=== PATIENT | female | born 1935 | race Caucasian/White ===

== ENCOUNTER 2017-02-17 00:59 | Emergency (ER) | payer MEDICARE ==
[2017-02-17 01:47] LABS: #Eosinphils 0.1 thou/uL (0.0-0.7); #Monocytes 0.7 thou/uL (0.11-0.59); %Basophils 0.5 % (0.0-1.0); %Eosinophils 1.9 % (0.0-10.0); %Lymphocytes 14.7 % (21.0-51.0); %Monocytes 9.9 % (0.0-10.0); Hematocrit 40.1 % (36.0-47.0); Red Blood Cell (RBC) Count 4.14 mill/uL (4.20-5.40); White Blood Cell (WBC) Count 6.9 thou/uL (4.8-10.8)
[2017-02-17 02:09] LABS: ALT (SGPT) 26 U/L (8-55); AST (SGOT) 24 U/L (5-34); Alkaline Phosphatase 73 U/L (40-150); Anion Gap 12 mmol/L (10-20); BUN (Urea Nitrogen) 15 mg/dL (9.8-20.1); Bilirubin, Total 0.5 mg/dL (0.2-1.2); CK (CPK) 55 U/L (29-168); Calc. Creatinine Clearance 0 mL/min (70-130); Calcium 9.3 mg/dL (7.8-10.44); Carbon Dioxide 24 mmol/L (23-31); Chloride 104 mmol/L (98-107); Estimated GFR-MDRD 71; Globulin 2.3 g/dL (2.4-3.5); Protein, Total 6.1 g/dL (6.0-8.3)
[2017-02-17 02:11] LABS: Troponin I Less than 0.010 ng/mL (< 0.028)
[2017-02-17 02:44] LABS: Bilirubin Negative (Negative); Blood, Urine Negative (Negative); Glucose, Urine (Dipstick) Negative (Negative); Ketone, Urine Negative (Negative); Nitrite Negative (Negative); Protein, Urine (Dipstick) Negative (Neg-Trace); Urobilinogen 0.2 mg/dL (0.2-1.0)
[2017-02-17 02:47] LABS: Bacteria/HPF Rare-Few HPF (None Seen); Hyaline Casts/LPF 0-3 HYALINE CAST LPF (0-3 Hyaline); RBC/HPF 0-3 HPF (0-3); Squamous Epithelial 0-3 HPF (0-3); WBC/HPF 21-50 HPF (0-3)
[2017-02-17] MEDS ORDERED: cefTRIAXone\\ROCEPHIN 500 MG VIAL ONE (03:40)
[2017-02-17] MEDS ORDERED: cefTRIAXone\\ROCEPHIN 1 GM in Syringe 10 ML SLOW IVP SCH (04:00)
--- NOTE | 2017-02-17 07:57 | CT ---
PRELIMINARY REPORT/[facility]/EMERGENCY AFTER HOURS PROCEDURE: EXAM: CT Head Without Intravenous Contrast CLINICAL HISTORY: 81 years old, female; Signs and symptoms; Altered mental status/memory loss; Confusion or disorienta tion; Patient HX: AMS. Er12. F81 presents to ed for hypertension/nausea. Pt's family reports when reza gottlieb got home from that she was a little loopy. Pt's family reports monday morning pt was a little magui y but okay and reports by monday evening her symptoms had worsened. Pt's family reports pt was then released from the hospital on monday and told to return to the ed if pt's blood pressure elevated. P t's family reports tonight pt's systolic blood pressure was 180 and pt reported nausea. Pt reports t he nausea has improved. Pt reports constipation. History of CVA. TECHNIQUE: Axial computed tomography images of the head/brain without intravenous contrast. COMPARISON: No relevant prior studies available. FINDINGS: There is no acute intracranial hemorrhage, extra axial hematoma, or midline shift. There is global parenchymal volume loss which may be appropriate for age related Involutional change . The ventricles are not dilated. Cavum septum pellucida et vergae incidentally noted as anatomic vari ation. There is extensive intracranial atherosclerosis. Tortuous left vertebral artery, slightly effacing t he anterior left brain stem. Scattered periventricular and deep white matter areas of hypoattenuatio n are noted, consistent with microvascular ischemic changes of indeterminate acuity. There is an ill defined cortical/subcortical area of hypoattenuation within the posterior left temporal lobe measuri ng approximately 3.5 cm in diameter, possibly related to ischemic change of indeterminate acuity, bu t may be subacute to chronic. There is a 7.7 mm area of slight relatively elevated attenuation withi n the hypoattenuation (image 13, series 2) of uncertain significance. This could be a spared area of brain parenchyma, summation artifact or possibly an underlying lesion. Consider MRI and diffusionwe ighted imaging for further characterization, as clinically appropriate. Comparison with prior studie s, if available would be helpful. Intracranial calcifications are incidentally noted. No pericranial scalp hematoma is seen. Ocular postoperative changes are noted. No acute cranial vault fracture is seen. No fluid is seen within the visualized paranasal sinuses or mastoid air cells. IMPRESSION: Parenchymal volume loss. No acute intracranial hemorrhage. Intracranial atherosclerosis and small vessel ischemic changes of indeterminate acuity. Left posterior temporal lobe attenuation changes, likely related to subacute to chronic infarct. If superimposed acute ischemic changes are suspected, consider MRI with diffusion weighted imaging for further characterization. 7 mm left posterior temporal lobe intra axial density within the hypoattenuation of uncertain signif icance, however differential and recommendations discussed above. Thank you for allowing us to participate in the care of your patient. Dictated and Authenticated by: Kvng Lugo MD 02/17/2017 2:54 AM Central Time ([place] \T\ [place]) FINAL REPORT EMERGENCY AFTER HOURS CT HEAD WITHOUT IV CONTRAST: 02/17/2017 HISTORY: Hypertension and nausea and vomiting. COMPARISON: MRI brain on 02/12/2017. IMPRESSION: 1. No acute intracranial abnormality is demonstrated. 2. Chronic small-vessel ischemic changes and cerebral volume loss. 3. Low-density area in the left temporoparietal region consistent with area of infarction. This is shown to represent an acute infarction on the study of 02/12/2017. This is most likely related to e volutionary changes in infarction in this region. Slight area of increased attenuation centrally wi thin this area of infarction is likely related to the normal brain parenchyma and is not thought to be related to an area of hemorrhage. 4. Remote infarction right cerebellar hemisphere. 5. Remote infarction right basal ganglia. 6. Densely calcified distal vertebral arteries. 7. Findings are in agreement with the preliminary report by April. However, April did not have availa bility of prior studies to evaluate for stability of the area of infarction in the left temporoparie preston lobe which was seen on prior study on 02/12/2017. POS: [facility]
--- NOTE | 2017-02-25 12:21 | EKG ---
Test Reason : Blood Pressure : / mmHG Vent. Rate : 063 BPM Atrial Rate : 063 BPM P-R Int : 184 ms QRS Dur : 104 ms QT Int : 462 ms P-R-T Axes : 060 -25 075 degrees QTc Int : 472 ms Sinus rhythm with occasional Premature ventricular complexes Possible Left atrial enlargement Anterior infarct , age undetermined Left axis deviation Abnormal ECG Confirmed by JOCELYN COKER MD ([id number]), commissioning editor SELVIN HUERTA ([id number]) on 02/25/2017 12:20:54 PM Referred By: Confirmed By:JOCELYN COKER MD
== END 2017-02-17 04:30 | disposition home or self-care (01) ==
LOC: ERS 00:59
DX: N39.0 Urinary tract infection, site not specified (principal); E03.9 Hypothyroidism, unspecified; E78.5 Hyperlipidemia, unspecified; I10 Essential (primary) hypertension; F41.9 Anxiety disorder, unspecified; Z79.82 Long term (current) use of aspirin; Z79.899 Other long term (current) drug therapy; Z86.73 Personal history of transient ischemic attack (TIA), and cerebral infarction without residual deficits
CPT/HCPCS: 36415; 70450; 80053; 81003; 81015; 82553; 84484; 85025; 93005; 96374; J0696

== ENCOUNTER 2017-05-30 19:18 | Inpatient (IN) | payer MEDICARE ==
[2017-05-30 20:00] LABS: INR-International Normal Ratio 1.1; PTT 35.1 SEC (22.9-36.1); Prothrombin Time 14.3 SEC (12.0-14.7)
[2017-05-30 20:17] LABS: ALT (SGPT) 12 U/L (8-55); AST (SGOT) 20 U/L (5-34); Alkaline Phosphatase 107 U/L (40-150); Anion Gap 13 mmol/L (10-20); BUN (Urea Nitrogen) 14 mg/dL (9.8-20.1); Bilirubin, Total 0.5 mg/dL (0.2-1.2); Calc. Creatinine Clearance 0 mL/min (70-130); Calcium 9.3 mg/dL (7.8-10.44); Carbon Dioxide 24 mmol/L (23-31); Chloride 106 mmol/L (98-107); Estimated GFR-MDRD 73; Globulin 2.5 g/dL (2.4-3.5); Glucose 89 mg/dL (83-110); Potassium 4.2 mmol/L (3.5-5.1); Protein, Total 6.5 g/dL (6.0-8.3); Sodium 139 mmol/L (136-145)
[2017-05-30 20:19] LABS: CKMB 2.5 ng/mL (0-6.6); Troponin I 0.209 ng/mL (< 0.028)
--- NOTE | 2017-05-30 20:33 | RAD ---
PORTABLE AP CHEST X-RAY 05/30/17 HISTORY: Dizziness and shoulder pain after a fall this morning. COMPARISON: 03/26/16. FINDINGS: Postsurgical changes related to CABG are again noted. The cardiac silhouette is magnified by projection but does appear mildly enlarged. There is mild nonspecific increased interstitial densities at each lung base. The lungs are otherwise clear. There is no pleural effusion or pneumothorax seen. Vascular calcification seen in the thoracic aorta. Osteopenia is present. No obvious fracture is identified. IMPRESSION: 1. No acute cardiopulmonary process. 2. Mild cardiomegaly. 3. Mild nonspecific interstitial prominence at each lung base. 4. Osteopenia. POS: [facility]
--- NOTE | 2017-05-30 20:51 | RAD ---
THREE VIEWS RIGHT SHOULDER: 05/30/17 HISTORY: Right shoulder pain after a fall this morning. FINDINGS: juan manuel is mild acromioclavicular joint osteoarthritis. The coracoclavicular and acromioclavicular dista nces are within normal limits. Osteopenia is present. There is no acute fracture, dislocation, or oth er osseous abnormality involving the right shoulder. Vascular calcifications are seen in the thoracic aorta with median sternotomy wires are seen. IMPRESSION: 1. No acute osseous abnormality right shoulder. 2. Osteoarthritis right acromioclavicular joint. 3. Osteopenia. POS: [facility]
[2017-05-30] MEDS ORDERED: Acetaminophen 325 MG TAB PO PRN (22:26)
[2017-05-30] MEDS ORDERED: Acetaminophen 650 MG Suppository PR PRN (22:26)
[2017-05-30] MEDS ORDERED: Bisacodyl 5 MG TAB PO PRN (22:26)
[2017-05-30] MEDS ORDERED: Ondansetron HCl/PF 4 MG/2 ML Vial IVP PRN (22:52)
[2017-05-30] MEDS ORDERED: Ondansetron ODT 4 MG TAB SL PRN (22:52)
--- NOTE | 2017-05-30 23:08 | HP ---
PRIMARY CARE PHYSICIAN: Dr. Ravinder Pastor. CHIEF COMPLAINT: Fall. HISTORY OF PRESENT ILLNESS: Ms. Matamoros is a pleasant 81-year-old lady who was seen at [facility] on 05/30/2017. She was hospitalized at this facility in 01/2017 for acute infarct in the left posterior temporoparie preston region. She reports that she receives physical therapy and speech therapy at home through home health. She was reportedly walking across her room which had a carpet. She had a mechanical fall. She lande d on the right side of her body. She denies any head trauma. She denies any lightheadedness or ches t pain. She denies any loss of consciousness. She denies any urinary symptoms. REVIEW OF SYSTEMS: The following complete review of systems was negative, unless otherwise mentioned in the HPI or below: Constitutional: Weight loss or gain, ability to conduct usual activities. Sk in: Rash, itching. Eyes: Double vision, pain. ENT/Mouth: Nose bleeding, neck stiffness, pain, te nderness. Cardiovascular: Palpitations, dyspnea on exertion, orthopnea. Respiratory: Shortness of breath, wheezing, cough, hemoptysis, fever, or night sweats. Gastrointestinal: Poor appetite, abdo salomón pain, heartburn, nausea, vomiting, constipation, or diarrhea. Genitourinary: Urgency, frequen cy, dysuria, nocturia. Musculoskeletal: Pain, swelling. Neurologic/Psychiatric: Anxiety, depressi on. Allergy/Immunologic: Skin rash, bleeding tendency. She also reports cough that has been going on for the last 2 or 3 days, nonproductive, not accompanied by any body aches, or fevers. PAST MEDICAL HISTORY: Significant for coronary artery disease, status post coronary artery bypass gr aft x5. She reports that 2 of the grafts are patent. She also has a history of dyslipidemia, hypoth yroidism, ovarian cancer, cholelithiasis, dyslipidemia, and cerebrovascular accident. She has residu al expressive aphasia. PAST SURGICAL HISTORY: Significant for appendectomy and coronary artery bypass graft. ALLERGIES: CODEINE. SOCIAL HISTORY: Patient denies tobacco use, alcohol use, or recreational drug use. CODE STATUS: I discussed her code status. She is DNR. FAMILY HISTORY: Significant for heart disease. CURRENT MEDICATIONS: Aspirin 325 mg daily, Colace 100 mg daily, fluoxetine 10 mg daily, Namenda 5 mg daily, metoprolol succinate 25 mg daily, Ranexa 500 mg daily, Synthroid 500 mcg daily, Crestor 20 mg daily, losartan 50 mg daily. PHYSICAL EXAMINATION: GENERAL: Ms. Matamoros is awake and alert, not in acute distress. VITAL SIGNS: Blood pressure is 159/75, pulse is 76. She is breathing at rate of 18, and saturating 95% on room air. She is afebrile. EYES: No scleral icterus, no conjunctival pallor. ENT: Moist mucosal membranes, no oropharyngeal erythema or exudates. NECK: Supple, nontender, normal range of movement, trachea is midline. RESPIRATORY: Accessory muscles of breathing are not active. Chest wall movements are symmetric bila terally. Lungs are clear to auscultation without wheeze, rhonchi, or crepitations. CARDIOVASCULAR: S1 and S2 are heard, regular. Peripheral pulses palpable. No carotid bruit, no per icardial rub. ABDOMEN: Soft, nontender, bowel sounds are heard, no hepatomegaly, no splenomegaly. NEUROLOGIC: Cranial nerves II-XII are intact. Deep tendon reflexes are 2+. MUSCULOSKELETAL: She has tenderness over the right shoulder. Power is 5/5 in all four extremities. She has mild ankle edema. SKIN: No rashes or subcutaneous nodules. LYMPHATIC: No cervical lymphadenopathy. PSYCHIATRIC: Normal mood, normal affect, patient is oriented to person, place, and time. LABORATORY DATA: Ms. Matamoros's labs and investigations were reviewed. I reviewed her electrocardiogra m, which shows normal sinus rhythm with premature supraventricular complexes, no ST changes to sugges t an acute coronary syndrome. I also reviewed her chest x-ray, which does not show any pulmonary inf iltrates. She also had x-rays of the right shoulder, which did not reveal any acute osseous abnormal ity. 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 ASSESSMENT AND PLAN: Ms. Matamoros is a pleasant 81-year-old lady who was seen at [facility] on 05/30/2017. Her problem list includes: 1. Elevated troponin: Etiology is unclear. She has an unremarkable electrocardiogram. She did not have any chest pain. However, she does have a significant cardiac history. Therefore, she will be admitted to the hospital in observation status to monitor her on telemetry and to repeat her troponin . Cardiology service will be consulted for their opinion and also help with managing and to determin e whether she needs any further testing in this regard. 2. Fall: Patient had a mechanical fall at home. She will continue physical therapy at home after d ischarge. 3. Hypothyroidism: Continue Synthroid. 4. Dyslipidemia: Continue statin. 5. Cough: No evidence of infection at this point on the chest x-ray. We will start her on Teslisa Gipson. Many thanks for allowing me to participate in your patient's care. Please feel free to contact me wi th any questions or concerns. LEVEL OF RISK: High. LEVEL OF COMPLEXITY: High.
[2017-05-30] MEDS ORDERED: Benzonatate 100 MG CAP PO SCH (23:45)
[2017-05-30 23:53] LABS: Troponin I 0.254 ng/mL (< 0.028)
[2017-05-31 02:03] LABS: #Eosinphils 0.1 thou/uL (0.0-0.7); #Lymphocytes 0.7 thou/uL (1.20-3.40); #Neutrophils 7.4 thou/uL (1.40-6.50); %Basophils 0.3 % (0.0-1.0); %Lymphocytes 7.7 % (21.0-51.0); %Monocytes 10.6 % (0.0-10.0); %Neutrophils 80.5 % (42.0-75.0); Mean Corpuscular Volume 87.3 fl (81.0-99.0); Mean Platelet Volume 7.3 fL (7.4-10.4); Platelet Count 185 thou/uL (130-400); RBC Distribution Width 13.7 % (11.5-14.5); White Blood Cell (WBC) Count 9.2 thou/uL (4.8-10.8)
[2017-05-31 02:21] LABS: Troponin I 0.269 ng/mL (< 0.028)
[2017-05-31 02:39] LABS: Anion Gap 12 mmol/L (10-20); BUN (Urea Nitrogen) 15 mg/dL (9.8-20.1); Calc. Creatinine Clearance 0 mL/min (70-130); Calcium 9.1 mg/dL (7.8-10.44); Carbon Dioxide 24 mmol/L (23-31); Chloride 108 mmol/L (98-107); Estimated GFR-MDRD 74; Glucose 119 mg/dL (83-110); Potassium 4.1 mmol/L (3.5-5.1); Sodium 140 mmol/L (136-145)
[2017-05-31] MEDS: guaiFENesin/DM ER PO PRN ×2 (03:41→22:31)
[2017-05-31 08:09] LABS: Troponin I 0.308 ng/mL (< 0.028)
[2017-05-31] MEDS: Benzonatate 100 MG CAP PO SCH ×3 (10:00→22:31)
--- NOTE | 2017-05-31 11:43 | CT ---
CT PULMONARY ANGIOGRAM WITH IV CONTRAST AND 3D POST PROCESSING: History: Chest pain, shortness of breath. FINDINGS: The pulmonary vasculature is well opacified without filling defects or pulmonary embolism. There are vascular calcifications without evidence of aneurysmal dilatation of the thorax. Small bilateral pleu ral effusions are seen with adjacent atelectatic changes. Mild ectatic changes are seen in the midlun g and right middle lobe. No pneumothoraces identified. Degenerative changes are present in the spine. IMPRESSION: 1. No CT evidence of pulmonary embolism. 2. Small bilateral pleural effusions. POS: [facility]
[2017-05-31] MEDS ORDERED: Heparin 10,000 UNITS/ 10 ML VIAL SLOW IVP SCH (12:00)
[2017-05-31] MEDS ORDERED: Heparin 25,000 units/D5W 500 ML IVPB SCH (12:00)
[2017-05-31 12:23] LABS: Hemoglobin 11.9 g/dL (12.0-16.0); Platelet Count 180 thou/uL (130-400)
[2017-05-31] MEDS ORDERED: Iopamidol 370 76% 100 ML VIAL ONE (16:51)
[2017-05-31] MEDS ORDERED: Communication Order-Pharmacy FS SCH (18:00)
[2017-05-31] MEDS: Sodium Chloride 0.9% 1,000 ML IV SCH (19:09)
[2017-05-31 19:42] LABS: PTT 131.5 SEC (22.9-36.1)
--- NOTE | 2017-05-31 22:07 | CON ---
DATE OF CONSULTATION: 05/31/2017 HISTORY OF PRESENT ILLNESS: Ms. Emily Matamoros is an 81-year-old white female that I initially evaluated in 01/1995 for chest discomfort. Several years prior to that, she was found to have an abnormal EKG when was evaluated for possible hormonal therapy in [place]. She underwent thallium treadmill testin and was felt that was normal. Two weeks prior to her initial evaluation, she was in the airport in [place] rushing to catch a plane. She felt chest tightness that lasted for 4 to 5 minutes. It was n ot associated with any shortness of breath, nausea, vomiting or diaphoresis. When she returned home, she walked on the treadmill and felt the same type of discomfort. She also started to notice this w hen climbing stairs. This is central chest pressure without any pleuritic component. It is always r elieved with resting 4 to 5 minutes. She underwent treadmill testing in [place], exercised for 4 min utes and 23 seconds and again had the same type of discomfort. There are minimal changes on EKG. He art rate was 144 per minute. She was given nitroglycerin and discomfort resolved rapidly. She then began to have episodes of nocturnal discomfort as well as after eating. She underwent cardiac catheterization on 02/14/1995, had normal left ventricular function with ejecti on fraction of 65%. There was diffuse disease of the LAD with proximal plaques of 60 and 60-70% mid lesion and an 80% apical lesion. The circumflex was small with an 80% mid lesion and a 99% lesion in the small first obtuse marginal. The right coronary artery had a 70% mid stenosis and 70% distal st enosis. The following day, she underwent CABG x5 with DO to the LAD and saphenous vein grafts to a small ramus, obtuse marginal 1, obtuse marginal 2 and the right coronary artery. She received 4 uni ts of blood. She had postoperative fever and was started on Indocin with rapid defervescence and imp rovement in her constitutional symptoms. In 03/1995 six weeks after bypass surgery, she was walking 1 mile per day and did not have any recurr ence of her chest pressure like she had prior to bypass surgery. In 11/1998, she complained of thump ing in her chest as well as chronic soreness on the left side of her chest and tenderness along the s ternum. Holter revealed rare ventricular and supraventricular ectopic beats. During palpitations, s he was in sinus rhythm. She also underwent stress echo testing exercising for 8 minutes and 30 secon ds on the treadmill. This is negative for ischemia with no ST segment changes. Echo revealed scar o f the inferior wall with ejection fraction of 50% to 55%. There was no evidence of stress-induced is chemia. She also underwent stress echo testing in 06/2000, which was negative. In 05/2003, stress e cho revealed inferoposterior wall scar, but no evidence of stress-induced ischemia. In 11/2008, she complained of occasional chest discomfort that would last for 1 to 2 minutes. She co mplained of decreased energy, but no shortness of breath, leg edema or syncope. She underwent adenos ine Cardiolite testing, which revealed evidence of proximal to mid lateral wall fixed defect, but no evidence of ischemia. With her new symptoms and a new finding of a fixed defect in the lateral wall, it was recommended that she undergo a catheterization. This revealed mild inferoapical hypokinesis with ejection fraction of 50% to 55% and mild mitral regurgitation. There was a 60% mid LAD, 50% les ion in the first septal. The circumflex had a 70% proximal stenosis, 80% mid stenosis and total occl usion of the first obtuse marginal, which filled retrograde from the left. The right coronary artery was totally occluded in its mid portion. Bypass grafts revealed occluded DO to the LAD. The stacie t to the first obtuse marginal and the graft to the second obtuse marginals were occluded. The graft to the ramus had a 50% lesion. The right coronary artery graft had a 50% proximal and 50% mid steno sis. It was felt best to continue to treat her medically. She has been relatively asymptomatic until 09/16. She presented and stating that for 8 months she has had exertional chest discomfort with tightn ess after walking 10 to 15 minutes. She was placed on Ranexa 500 mg b.i.d. and since that time has n ot complained of much chest discomfort. She then was hospitalized in 01/2017. She has undergone amairani e peripheral vascular procedures and had an acute left posterior temporal region CVA with resulting m ild aphasia as well as right arm weakness. She was admitted on 05/30/2017 after a fall at home. She remembers falling, remembers hitting the ground. She fell on her right side. There was apparently no significant trauma. It has been noted that her troponin I has been elevated even though she has n ot had any chest discomfort. PAST MEDICAL HISTORY: Hyperlipidemia, coronary artery disease, hypothyroidism, ovarian cancer, clarita lithiasis, CVA with residual aphasia. No history of diabetes. OPERATIONS: Breast biopsies, vaginal hysterectomy with bladder suspension, CABG. She has history of ovarian cancer and underwent chemotherapy in 1999. Appendectomy. MEDICATIONS: Ranexa 500 mg b.i.d., aspirin 325 mg daily, Prozac 10 mg q.a.m., levothyroxine 50 mcg q .a.m., Linzess 72 mcg daily, Cozaar 50 mg daily, Namenda 5 mg b.i.d., metoprolol 25 mg daily, and ros uvastatin 20 mg at bedtime. ALLERGIES: CODEINE. SOCIAL HISTORY: She does not smoke or drink. FAMILY HISTORY: Mother had myocardial infarction and of congestive heart failure at age 72. REVIEW OF SYSTEMS: Twelve point review of systems is otherwise unremarkable. PHYSICAL EXAMINATION: VITAL SIGNS: Blood pressure 154/67, pulse 67. HEENT: PERRL. NECK: Supple. CHEST: Reveals crackles at the bases. CARDIAC: S1 and S2 are normal without any S3, S4 or murmurs. ABDOMEN: Normal bowel sounds without tenderness or organomegaly. EXTREMITIES: Revealed no clubbing, cyanosis or edema. NEUROLOGIC: Grossly intact. SKIN: Warm and dry. LABORATORY DATA: EKG revealed sinus arrhythmia, left atrial enlargement. Echo has not yet been perf ormed. Hemoglobin 12.0, hematocrit 37.5, white count 9200, platelets 185,000. PTT 38.5. Sodium 140 , potassium 4.1, chloride 108, carbon dioxide 24, BUN 15, creatinine 0.75. CK-MBs are normal. Tropo rodo I is up to 0.308. BNP is 1286.8. IMPRESSION: 1. Elevated troponin of uncertain etiology. She has had absolutely no chest discomfort. This could represent demand ischemia or myocardial contusion. In 09/2016, she did have increased episodes of c hest discomfort until she was placed on Ranexa. 2. 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 3. Hypercholesterolemia, under poor control. 4. Hypertension. 5. Ischemic cardiomyopathy with ejection fraction of 35% to 40% on last echocardiogram in 01/2017 in the office. 6. Peripheral vascular disease, status post interventions. 7. Positive family history. PLAN: The situation was discussed with the patient and her daughter. The patient currently is a DNR . We discussed further evaluation of cardiac status; however, DNR would need to be rescinded. Risks of catheterization were discussed including , myocardial infarction, dye reaction, vascular inj ury, CVA, transfusion, limb loss, renal loss, etc. Also, risk of intervention with PTCA and stent pl acement were discussed including , myocardial infarction, emergent CABG, restenosis, stent throm bosis, etc. With her multiple medical problems, I would place a bare metal stent. She will decide i f she wished to proceed and if that is the case, she agrees to rescind a DNR order.
--- NOTE | 2017-05-31 23:28 | PDOC.PN ---
- Subjective Encounter Start Date: 05/31/17 Encounter Start Time: 19:00 Subjective: nsg notes rev, derrell ovn, no new c/o, dtr at bedside. has question re : -: chronic constipation over the past yr, curr unchanged - Objective Resuscitation Status: Resuscitation Status DNR:Do Not Resuscitate Vital Signs & Weight: Vital Signs (12 hours) Temp Pulse Resp BP Pulse Ox 05/31/17 16:00 98.6 F 67 17 151/67 H 93 L Weight Weight 125 lb I&O: 05/30/17 05/31/17 06/01/17 06:59 06:59 06:59 Intake Total 120 Balance 120 Result Diagrams: 05/31/17 12:08 05/31/17 01:47 Phys Exam - Physical Examination Constitutional: NAD HEENT: PERRLA, moist MMs, sclera anicteric Neck: no nodes Respiratory: no wheezing, no rales, no rhonchi Cardiovascular: RRR, no significant murmur, no rub Gastrointestinal: soft, positive bowel sounds Neurological: moves all 4 limbs Psychiatric: normal affect, A&O x 3 Dx/Plan - Plan * hx CAD * will go for [facility] in AM given elev trop * apprec cardiology cs issues with constipation * recommend a bowel regimen with close monitoring of BM frequency and PO intake hx CHF * continue home regimen and monitor diet: NPO after midnight activity: out of bed as jenny dvt ppx Review of Systems - Medications/Allergies Allergies/Adverse Reactions: Allergies Allergy/AdvReac Type Severity Reaction Status Date / Time codeine Allergy Verified 05/30/17 23:15 Medications: Current Medications Acetaminophen (Tylenol) 650 mg PO Q4H PRN PRN Reason: Headache/Fever or Pain Last Admin: 05/31/17 03:42 Dose: 650 mg Acetaminophen (Tylenol) 650 mg IA Q4H PRN PRN Reason: Headache/Fever or Pain Benzonatate (Tessalon) 100 mg PO TID [facility] Last Admin: 05/31/17 22:31 Dose: 100 mg Bisacodyl (Dulcolax) 10 mg PO DAILYPRN PRN PRN Reason: Constipation Guaifenesin/Dextromethorphan (Mucinex Dm) 1 tab PO TIDPRN PRN PRN Reason: Cough Last Admin: 05/31/17 22:31 Dose: 1 tab Heparin Sodium (Porcine) (Heparin 1,000 Units/Ml (10 Ml)) 0 units SLOW IVP ASDIR KARI PRN Reason: Protocol Last Admin: 05/31/17 13:20 Dose: 3.42 ml Heparin Sodium/Dextrose (Heparin 25,000 Units/D5w 500 Ml) 500 mls @ 0 mls/hr IVPB INF KARI; Per Protocol PRN Reason: Protocol Last Admin: 05/31/17 13:20 Dose: 500 mls Sodium Chloride (Normal Saline 0.9%) 1,000 mls @ 75 mls/hr IV .[id number] [facility] Last Admin: 05/31/17 19:09 Dose: Not Given Miscellaneous Information (Communication Order-Pharmacy) 0 each FS ONE KARI Stop: 05/31/17 23:59 Sodium Chloride (Flush - Normal Saline) 10 ml IVF Q12HR KARI Last Admin: 05/31/17 22:32 Dose: 10 ml Sodium Chloride (Flush - Normal Saline) 10 ml IVF PRN PRN PRN Reason: Saline Flush
[2017-06-01] MEDS: guaiFENesin/DM ER PO PRN (04:01)
[2017-06-01] MEDS ORDERED: Lidocaine 1% (PF) 30 ML VIAL ONE (06:36)
[2017-06-01] MEDS: Sodium Chloride 0.9% 1,000 ML IV SCH (06:38)
[2017-06-01] MEDS: Benzonatate 100 MG CAP PO SCH ×3 (06:39→20:21)
[2017-06-01] MEDS ORDERED: Protamine Sulfate 50 MG/5 ML VIAL ONE (07:33)
[2017-06-01] MEDS ORDERED: Nitroglycerin 0.4 MG TAB (25 Tab Bottle) SL PRN (07:54)
[2017-06-01] MEDS ORDERED: Acetaminophen/Codeine 30-300mg Tablet PO PRN (07:54)
[2017-06-01] MEDS ORDERED: Sodium Chloride 0.9% 1,000 ML IV SCH (07:56)
[2017-06-01] MEDS ORDERED: Sodium Chloride 0.9% 200 ML IV SCH (08:00)
[2017-06-01] MEDS ORDERED: Iopamidol 370 76% 100 ML VIAL ONE (10:25)
[2017-06-01] MEDS ORDERED: Iopamidol 370 76% 50 ML VIAL FS ONE (10:25)
[2017-06-01] MEDS ORDERED: FLUoxetine HCl 10 MG CAP PO SCH (12:15)
[2017-06-01] MEDS ORDERED: Levothyroxine Sodium 50 MCG TAB PO SCH (12:15)
[2017-06-01] MEDS ORDERED: Furosemide 40 MG/4 ML VIAL SLOW IVP SCH (14:15)
--- NOTE | 2017-06-01 14:44 | RAD ---
CHEST 1 VIEW: HISTORY: Cough and wheezing. COMPARISON: 05/30/17. FINDINGS: Cardiac silhouette is magnified and enlarged. Pulmonary vasculature is more engorged than on the bobby or study with patchy bilateral perihilar and bibasilar infiltrates. Mediastinum is midline with post operative changes and aortic calcification. There is no evidence of pneumothorax. surveillance monitor l ruby overlie the chest. IMPRESSION: Bilateral airspace disease is favored to be related to pulmonary vascular congestion. POS: [facility]
--- NOTE | 2017-06-01 17:11 | RAD ---
CHEST ONE VIEW: 06/01/17 HISTORY: Syncope. COMPARISON: Earlier exam on the same date. FINDINGS: The cardiac silhouette is magnified and enlarged. Pulmonary vasculature is more engorged than on the previous study with increasing bilateral perihilar and bibasilar infiltrates. Blunting of the left co stophrenic angle has the appearance of a small amount of pleural fluid. Mediastinum is midline with p ostoperative changes and aortic calcification. almond cutting machine tender leads overlie the chest. IMPRESSION: 1. Increasing pulmonary vascular congestion. 2. Atherosclerosis. POS: [facility]
--- NOTE | 2017-06-01 17:13 | RAD ---
AP VIEW ABDOMEN 06/01/17 HISTORY: Abdominal distention, bloating and nausea. AP view abdomen is obtained. Comparison made to previous exam from 03/24/16. AP view abdomen demonstrates marked atherosclerotic calcification of the abdominal aorta. Numerous ga llstones noted. No evidence of bowel obstruction or ileus seen. A moderate amount of stool is seen in the colon. There is dextroscoliosis present. There is some blunting of the left costophrenic angle compatible with a left sided pleural effusion. IMPRESSION: Cholelithiasis. POS: KINJAL
[2017-06-01] MEDS ORDERED: Polyethylene Glycol 3350 17 GM Packet PO SCH (17:30)
[2017-06-01 17:34] LABS: Bilirubin Negative (Negative); Blood, Urine Negative (Negative); Clarity CLEAR (Clear); Glucose, Urine (Dipstick) Negative (Negative); Leukocyte Negative (Negative); Nitrite Negative (Negative); Protein, Urine (Dipstick) Negative (Neg-Trace); Specific Gravity, Urine 1.009 (1.002-1.036); Urobilinogen 0.2 mg/dL (0.2-1.0); pH, Urine 5.5 (5.0-9.0)
[2017-06-01 17:36] LABS: Bacteria/HPF None Seen HPF (None Seen); Hyaline Casts/LPF 0-3 HYALINE CAST LPF (0-3 Hyaline); RBC/HPF 0-3 HPF (0-3); Squamous Epithelial None Seen HPF (0-3); WBC/HPF None Seen HPF (0-3)
[2017-06-01] MEDS: Aspirin 325 mg Enteric Coated Tablet PO SCH (20:21)
[2017-06-01] MEDS: Rosuvastatin 20 MG TAB PO SCH (20:21)
[2017-06-01] MEDS: Vit A,C & E/Lutein/Minerals Tablet PO SCH (20:21)
--- NOTE | 2017-06-01 22:40 | PDOC.PN ---
- Subjective Encounter Start Date: 06/01/17 Encounter Start Time: 15:00 Subjective: nsg notes rev, derrell ovn, pt seen in context of code green called for sob -: pts dtr @ bedside - pt had coughing then emesis then SOB despite 4L NC -: and lasix admin - Objective Vital Signs & Weight: Vital Signs (12 hours) Temp Pulse Pulse Resp Resp BP BP 06/01/17 20:00 98.4 F 84 20 06/01/17 16:12 98.1 F 90 18 06/01/17 15:25 109 H 28 H 213/126 H 208/108 H 06/01/17 12:30 98.1 F 75 18 BP BP BP BP BP BP BP 06/01/17 20:00 141/68 H 120/59 L 111/55 L 06/01/17 16:12 157/77 H 06/01/17 15:25 168/93 H 167/78 H 144/71 H 06/01/17 12:30 141/75 H Pulse Ox Pulse Ox Pulse Ox Pulse Ox Pulse Ox Pulse Ox Pulse Ox 06/01/17 20:00 97 06/01/17 16:12 92 L 06/01/17 15:25 90 L 89 L 95 95 97 95 06/01/17 12:30 92 L Weight Weight 126 lb I&O: 05/31/17 06/01/17 06/02/17 06:59 06:59 06:59 Intake Total 480 980 Output Total 300 550 Balance 180 430 Result Diagrams: 05/31/17 12:08 05/31/17 01:47 Additional Labs: Accuchecks 06/01/17 15:27 POC Glucose 126 H Phys Exam - Physical Examination Constitutional: NAD HEENT: PERRLA, moist MMs Neck: no nodes, no JVD Respiratory: no wheezing, no rales bibasilar crackles Cardiovascular: RRR, no significant murmur, no rub soft heart tones Gastrointestinal: soft, no distention, positive bowel sounds Musculoskeletal: no edema, pulses present Neurological: moves all 4 limbs Psychiatric: normal affect, A&O x 3 Dx/Plan - Plan * . Review of Systems - Medications/Allergies Allergies/Adverse Reactions: Allergies Allergy/AdvReac Type Severity Reaction Status Date / Time codeine Allergy Verified 05/30/17 23:15 Medications: Current Medications Acetaminophen (Tylenol) 650 mg PO Q4H PRN PRN Reason: Headache/Fever or Pain Last Admin: 05/31/17 03:42 Dose: 650 mg Acetaminophen (Tylenol) 650 mg [place] Q4H PRN PRN Reason: Headache/Fever or Pain Aspirin (Ecotrin) 325 mg PO HS [facility] Last Admin: 06/01/17 20:21 Dose: 325 mg Benzonatate (Tessalon) 100 mg PO TID [facility] Last Admin: 06/01/17 20:21 Dose: 100 mg Bisacodyl (Dulcolax) 10 mg PO DAILYPRN PRN PRN Reason: Constipation Fluoxetine HCl (Prozac) 20 mg PO QAM [facility] Guaifenesin/Dextromethorphan (Mucinex Dm) 1 tab PO TIDPRN PRN PRN Reason: Cough Last Admin: 06/01/17 04:01 Dose: 1 tab Levothyroxine Sodium (Synthroid) 50 mcg PO 0600 [facility] Losartan Potassium (Cozaar) 50 mg PO DAILY [facility] Memantine (Namenda) 5 mg PO BID [facility] Last Admin: 06/01/17 20:20 Dose: 5 mg Metoprolol Succinate (Toprol Xl) 25 mg PO DAILY [facility] Last Admin: 06/01/17 10:14 Dose: 25 mg Multivitamins/Minerals (Ocuvite With Lutein) 1 tab PO BID [facility] Last Admin: 06/01/17 20:21 Dose: 1 tab Nitroglycerin (Nitrostat) 0.4 mg SL Q5MIN PRN PRN Reason: Chest Pain Linaclotide [Linzess (] 72 Mcg) 0 each PO DAILY [facility] Ranolazine (Ranexa) 500 mg PO BID [facility] Last Admin: 06/01/17 20:20 Dose: 500 mg Rosuvastatin Calcium (Crestor) 20 mg PO HS [facility] Last Admin: 06/01/17 20:21 Dose: 20 mg Sodium Chloride (Flush - Normal Saline) 10 ml IVF Q12HR [facility] Last Admin: 06/01/17 20:22 Dose: 10 ml Sodium Chloride (Flush - Normal Saline) 10 ml IVF PRN PRN PRN Reason: Saline Flush Last Admin: 06/01/17 14:25 Dose: 10 ml
[2017-06-02] MEDS: Levothyroxine Sodium 50 MCG TAB PO SCH (05:21)
[2017-06-02] MEDS ORDERED: Linaclotide [Linzess] 72 MCG PO SCH (09:00)
[2017-06-02] MEDS ORDERED: Losartan 25 MG TAB PO SCH (09:00)
[2017-06-02] MEDS ORDERED: FLUoxetine HCl 10 MG CAP PO SCH (09:00)
[2017-06-02] MEDS: Benzonatate 100 MG CAP PO SCH ×3 (09:53→20:51)
[2017-06-02] MEDS: Losartan 25 MG TAB PO SCH (09:53)
[2017-06-02] MEDS: Vit A,C & E/Lutein/Minerals Tablet PO SCH ×2 (09:53→20:52)
[2017-06-02] MEDS: Furosemide 20 MG TAB PO SCH (09:54)
[2017-06-02] MEDS: FLUoxetine HCl 20 MG CAP PO SCH (09:54)
[2017-06-02] MEDS: Aspirin 325 mg Enteric Coated Tablet PO SCH (20:50)
[2017-06-02] MEDS: Rosuvastatin 20 MG TAB PO SCH (20:52)
--- NOTE | 2017-06-02 22:32 | PDOC.PN ---
- Objective Vital Signs & Weight: Vital Signs (12 hours) Temp Pulse Resp BP BP Pulse Ox 06/02/17 16:55 98.4 F 67 24 H 126/59 L 95 06/02/17 12:25 98.3 F 71 17 100/54 L 94 L Weight Weight 118 lb 12.8 oz I&O: 06/01/17 06/02/17 06/03/17 06:59 06:59 06:59 Intake Total 480 1100 720 Output Total 300 750 Balance 180 350 720 Result Diagrams: 05/31/17 12:08 05/31/17 01:47 Dx/Plan - Plan * . Review of Systems - Medications/Allergies Allergies/Adverse Reactions: Allergies Allergy/AdvReac Type Severity Reaction Status Date / Time codeine Allergy Verified 05/30/17 23:15 Medications: Current Medications Acetaminophen (Tylenol) 650 mg PO Q4H PRN PRN Reason: Headache/Fever or Pain Last Admin: 05/31/17 03:42 Dose: 650 mg Acetaminophen (Tylenol) 650 mg [place] Q4H PRN PRN Reason: Headache/Fever or Pain Aspirin (Ecotrin) 325 mg PO HS [facility] Last Admin: 06/02/17 20:50 Dose: 325 mg Benzonatate (Tessalon) 100 mg PO TID [facility] Last Admin: 06/02/17 20:51 Dose: 100 mg Bisacodyl (Dulcolax) 10 mg PO DAILYPRN PRN PRN Reason: Constipation Fluoxetine HCl (Prozac) 20 mg PO QAM [facility] Last Admin: 06/02/17 09:54 Dose: 20 mg Furosemide (Lasix) 20 mg PO DAILY [facility] Last Admin: 06/02/17 09:54 Dose: 20 mg Guaifenesin/Dextromethorphan (Mucinex Dm) 1 tab PO TIDPRN PRN PRN Reason: Cough Last Admin: 06/01/17 04:01 Dose: 1 tab Levothyroxine Sodium (Synthroid) 50 mcg PO 0600 [facility] Last Admin: 06/02/17 05:21 Dose: 50 mcg Losartan Potassium (Cozaar) 25 mg PO DAILY [facility] Last Admin: 06/02/17 09:53 Dose: 25 mg Memantine (Namenda) 5 mg PO BID [facility] Last Admin: 06/02/17 20:51 Dose: 5 mg Metoprolol Succinate (Toprol Xl) 25 mg PO DAILY [facility] Last Admin: 06/02/17 09:53 Dose: 25 mg Multivitamins/Minerals (Ocuvite With Lutein) 1 tab PO BID [facility] Last Admin: 06/02/17 20:52 Dose: 1 tab Nitroglycerin (Nitrostat) 0.4 mg SL Q5MIN PRN PRN Reason: Chest Pain Linaclotide [Linzess (] 72 Mcg) 0 each PO DAILY [facility] Ranolazine (Ranexa) 500 mg PO BID [facility] Last Admin: 06/02/17 20:52 Dose: 500 mg Rosuvastatin Calcium (Crestor) 20 mg PO HS [facility] Last Admin: 06/02/17 20:52 Dose: 20 mg Sodium Chloride (Flush - Normal Saline) 10 ml IVF Q12HR [facility] Last Admin: 06/02/17 20:52 Dose: 10 ml Sodium Chloride (Flush - Normal Saline) 10 ml IVF PRN PRN PRN Reason: Saline Flush Last Admin: 06/01/17 14:25 Dose: 10 ml
[2017-06-03 05:13] LABS: Anion Gap 9 mmol/L (10-20); BUN (Urea Nitrogen) 15 mg/dL (9.8-20.1); Calc. Creatinine Clearance 48 mL/min (70-130); Calcium 8.3 mg/dL (7.8-10.44); Carbon Dioxide 24 mmol/L (23-31); Chloride 105 mmol/L (98-107); Estimated GFR-MDRD 74; Glucose 93 mg/dL (83-110); Potassium 3.2 mmol/L (3.5-5.1); Sodium 135 mmol/L (136-145)
[2017-06-03] MEDS: Levothyroxine Sodium 50 MCG TAB PO SCH (05:48)
[2017-06-03] MEDS: FLUoxetine HCl 20 MG CAP PO SCH (09:36)
[2017-06-03] MEDS: Furosemide 20 MG TAB PO SCH (09:36)
[2017-06-03] MEDS: Benzonatate 100 MG CAP PO SCH ×2 (09:36→16:12)
[2017-06-03] MEDS: Losartan 25 MG TAB PO SCH (09:36)
[2017-06-03] MEDS: Vit A,C & E/Lutein/Minerals Tablet PO SCH (09:36)
[2017-06-03 12:46] VITALS: TEMP 97.5
[2017-06-03 16:31] VITALS: BP 105/51
== END 2017-06-03 16:57 | disposition home health service (06) | DRG 281 ==
LOC: ERS 19:18 → 2SW 21:20 → OBSVTOIN 05-31 11:54 → 2NO 05-31 16:11
PROVIDERS: ADMIT Internal Medicine; ATTEND Internal Medicine
PROC: 4A023N7 Measurement of Cardiac Sampling and Pressure, Left Heart, Percutaneous Approach (ICD-10-PCS; principal; 2017-06-01)
PROC: B2131ZZ Fluoroscopy of Multiple Coronary Artery Bypass Grafts using Low Osmolar Contrast (ICD-10-PCS; 2017-06-01)
PROC: B2111ZZ Fluoroscopy of Multiple Coronary Arteries using Low Osmolar Contrast (ICD-10-PCS; 2017-06-01)
PROC: B2181ZZ Fluoroscopy of Left Internal Mammary Bypass Graft using Low Osmolar Contrast (ICD-10-PCS; 2017-06-01)
PROC: B2151ZZ Fluoroscopy of Left Heart using Low Osmolar Contrast (ICD-10-PCS; 2017-06-01)
DX: I21.4 Non-ST elevation (NSTEMI) myocardial infarction (principal); I25.810 Atherosclerosis of coronary artery bypass graft(s) without angina pectoris; I69.320 Aphasia following cerebral infarction; I34.0 Nonrheumatic mitral (valve) insufficiency; I73.9 Peripheral vascular disease, unspecified; E03.9 Hypothyroidism, unspecified; Z95.1 Presence of aortocoronary bypass graft; I25.10 Atherosclerotic heart disease of native coronary artery without angina pectoris; E78.5 Hyperlipidemia, unspecified; Z85.43 Personal history of malignant neoplasm of ovary; Z66 Do not resuscitate; I25.5 Ischemic cardiomyopathy
CPT/HCPCS: 36415; 36416; 71045; 71275; 74018; 80048; 80053; 81001; 82553; 83880; 84484; 85025; 85347; 85610; 85730; 87086; 93005; 93010; 93306; 93455; 93798; A4216; C1769; G8996-GN-CH; G8997-GN-CH; J1644; J1940; J2001; J2720

== ENCOUNTER 2017-11-21 10:30 | Day surgery (SDC) | payer MEDICARE ==
[2017-11-20 16:14] VITALS: BMI 21.2
[~2017-11-21 10:30] MED LIST: Gadobenate Dimeglumine 529 MG/1 ML (20ML VIAL) ONE
[2017-11-21 12:20] LABS: Anion Gap 13 mmol/L (10-20); BUN (Urea Nitrogen) 17 mg/dL (9.8-20.1); Calc. Creatinine Clearance 37 mL/min (70-130); Calcium 9.7 mg/dL (7.8-10.44); Carbon Dioxide 29 mmol/L (23-31); Chloride 103 mmol/L (98-107); Estimated GFR-MDRD 54; Glucose 94 mg/dL (83-110); Potassium 4.3 mmol/L (3.5-5.1); Sodium 141 mmol/L (136-145)
--- NOTE | 2017-11-21 15:06 | MRI ---
BRAIN MRI WITH AND WITHOUT CONTRAST: Indication: Cerebral infarction. Progressive AMF (altered mental status). FINDINGS: Cavum pellucidum et vergae is present. There is moderate chronic ischemic disease with multifocal sup erimposed remote cavitary infarction. Subtle area of subcortical restricted diffusion is present at t he left parietal lobe, indicative of subacute ischemia. No hemorrhagic susceptibility. No pathologic intraaxial enhancement. Global atrophy is present, moderate in degree. There is compensatory dilatati on of the ventricular system. There are remote lacunar infarctions in the bilateral cerebellar hemisp heres. The imaged central skull base flow voids are grossly patent. [place] intraocular lenses are abs ent. IMPRESSION: 1. Small area of subacute ischemia involving the subcortical aspect of the left parietal lobe. 2. Moderate chronic ischemic disease with multifocal superimposed cavitary lacunar infarctions. POS: KINJAL
== END 2017-11-21 16:10 | disposition home or self-care (01) ==
LOC: SDC/OP 10:30
PROVIDERS: ATTEND Psychiatry & Neurology Neurology
DX: I69.320 Aphasia following cerebral infarction (principal); I69.321 Dysphasia following cerebral infarction; I65.21 Occlusion and stenosis of right carotid artery; I10 Essential (primary) hypertension; E78.00 Pure hypercholesterolemia, unspecified; Z79.82 Long term (current) use of aspirin; Z79.899 Other long term (current) drug therapy; Z88.5 Allergy status to narcotic agent
CPT/HCPCS: 36415; 70553; 80048; 93005; 93010; A9579

== ENCOUNTER 2017-12-29 14:11 | Observation (INO) | payer MEDICARE ==
[2017-12-29] MEDS ORDERED: ISOVUE-370 76%-LOCM 1 ML ONE (14:21)
[2017-12-29 14:34] LABS: #Eosinphils 0.1 thou/uL (0.0-0.7); #Lymphocytes 1.1 thou/uL (1.20-3.40); #Monocytes 0.7 thou/uL (0.11-0.59); #Neutrophils 4.4 thou/uL (1.40-6.50); %Basophils 0.5 % (0.0-1.0); %Eosinophils 1.7 % (0.0-10.0); %Lymphocytes 17.7 % (21.0-51.0); %Monocytes 11.1 % (0.0-10.0); Hemoglobin 13.5 g/dL (12.0-16.0); Mean Corpuscular HGB CONC 32.2 g/dL (32.0-36.0); Mean Corpuscular Hemoglobin 28.4 pg (27.0-31.0); Mean Corpuscular Volume 88.3 fL (78.0-98.0); Platelet Count 181 thou/uL (130-400); RBC Distribution Width 15.1 % (11.5-14.5); Red Blood Cell (RBC) Count 4.73 mill/uL (4.20-5.40); White Blood Cell (WBC) Count 6.4 thou/uL (4.8-10.8)
--- NOTE | 2017-12-29 14:41 | CT ---
CT BRAIN WITHOUT CONTRAST: Date: 12/29/17 HISTORY: 82-year-old female with history of difficulty forming words, stroke alert. FINDINGS: Comparison made with exam of 02/17/17. Changes of cortical atrophy, chronic small vessel ischemic disease, and old infarction in the left te mporoparietal lobe are seen. The ventricular size is appropriate and the basilar cisterns are patent. No evidence of acute infarct, hemorrhage, midline shift, or abnormal extra-axial fluid collections a re seen. The bony calvarium is intact. The visualized paranasal sinuses and mastoid air cells are wel l aerated. IMPRESSION: No CT evidence of acute intracranial process. Report called over the telephone to ER physician, Dr. Dominick Simeon at 1427 hours. CODE CR.
[2017-12-29 14:48] LABS: INR-International Normal Ratio 1.1; PTT 31.9 SEC (22.9-36.1); Prothrombin Time 13.9 SEC (12.0-14.7)
[2017-12-29 14:50] LABS: ALT (SGPT) 13 U/L (8-55); AST (SGOT) 28 U/L (5-34); Alkaline Phosphatase 84 U/L (40-150); Anion Gap 14 mmol/L (10-20); BUN (Urea Nitrogen) 13 mg/dL (9.8-20.1); Bilirubin, Total 0.5 mg/dL (0.2-1.2); CK (CPK) 50 U/L (29-168); Calc. Creatinine Clearance 0 mL/min (70-130); Carbon Dioxide 25 mmol/L (23-31); Chloride 104 mmol/L (98-107); Estimated GFR-MDRD 65; Globulin 2.8 g/dL (2.4-3.5); Glucose 82 mg/dL (83-110); Potassium 4.3 mmol/L (3.5-5.1); Protein, Total 6.8 g/dL (6.0-8.3); Sodium 139 mmol/L (136-145)
[2017-12-29 14:52] LABS: CKMB 1.3 ng/mL (0-6.6); Troponin I Less than 0.010 ng/mL (< 0.028)
--- NOTE | 2017-12-29 15:14 | CT ---
CT ANGIOGRAM OF THE HEAD AND NECK: HISTORY: Stroke alert. Difficulty forming words. COMPARISON: None. TECHNIQUE: A CT angiogram of the head and neck is performed in the axial plane. Three-dimensional reformatted i mages are submitted for interpretation. FINDINGS: There does appear to be preservation of cortical menjivar-white matter differentiation. Chronic area of malacic and gliotic change involving the left temporal lobe corresponds to a previous MRI 11/21/17. Co nfluent white matter hypodensities with chronic small-vessel ischemic changes are noted. Note is mad e of a cavum septum pellucidum and cavum vergae. Bilateral ocular lens implants are noted. Aerodigestive tract was patent. No mucosal abnormality. Limited evaluation of the oral cavity due to dental amalgam artifact. Midline fatty raphae of the to ngue is preserved. Lingual tonsils and epiglottis are unremarkable. There is no prevertebral soft t issue swelling. The parotid and submandibular glands are unremarkable. Symmetric attenuation of the sternocleidomastoid muscles. No evidence of lymphadenopathy by size criteria. Heterogeneous thyroid gland with a calcified nodule in the right thyroid lobe. Upper mediastinum is unremarkable. Ground-glass opacities in the visualized lung apices. Cervical spine vertebral body height is maintained. There is no fracture. CT ANGIOGRAM: There is appropriate enhancement and luminal diameter in the visualized arch. Atherosclerosis of the proximal descending thoracic aorta is noted. There is atherosclerosis in the origin of both subclavian arteries. RIGHT CAROTID: Appropriate enhancement and luminal diameter of the origin of the right carotid artery. The common c arotid artery and carotid bifurcation do not have significant stenosis based on NASCET criteria. The re is short-segment severe stenosis involving the proximal right internal carotid artery based upon N ASCET criteria. There is short-segment severe stenosis. The remainder of the right internal carotid artery is patent. LEFT CAROTID: The origin of the left carotid artery has appropriate enhancement and luminal diameter. The left com mon carotid artery has appropriate enhancement and luminal diameter. The calcified plaque in the lef t carotid bifurcation and proximal internal carotid artery without significant stenosis based upon NA SCET criteria. A small amount of calcified plaque in the distal cervical internal carotid artery. Both cervicovertebral arteries are patent throughout their course in the neck. There is mild atheros clerosis at the origin of the left vertebral artery. CT ANGIOGRAM OF THE HEAD: There is symmetric enhancement and luminal diameter of the intracranial internal carotid arteries. A therosclerosis without significant stenosis and bilateral paraclinoid and cavernous segments. ANTERIOR CIRCULATION: Symmetric enhancement and luminal diameter of A1 and M1 segments. He proximal A2 segments and MCA br anches are unremarkable. POSTERIOR CIRCULATION: Atherosclerosis in both intracranial vertebral arteries. No significant stenosis. Both PICA artery origins are unremarkable. Basilar artery has appropriate enhancement and luminal diameter. Left and right P1 segments have appropriate enhancement and luminal diameter. IMPRESSION: 1. Unremarkable CT angiogram of the head. 2. Short segment severe stenosis involving the proximal right internal carotid artery. Results of the study discussed with Dr. Mcrae 12/29/17 at 2:48 p.m. CODE CR POS: KINJAL
--- NOTE | 2017-12-29 15:17 | RAD ---
PORTABLE CHEST 1 VIEW: Date: 12/29/17 Time: 1452 hours HISTORY: Altered mental status. FINDINGS: There are changes of median sternotomy. The heart size is borderline. The aorta is tortuous. The lung s are well expanded without lobar consolidation, pneumothoraces, conrad pulmonary edema, or pleural ef fusions. IMPRESSION: No radiographic evidence of acute cardiopulmonary process. POS: [facility]
[2017-12-29 15:43] LABS: Bilirubin Negative (Negative); Blood, Urine Negative (Negative); Clarity CLEAR (Clear); Glucose, Urine (Dipstick) Negative (Negative); Leukocyte Small (Negative); Nitrite Negative (Negative); Protein, Urine (Dipstick) Negative (Neg-Trace); Specific Gravity, Urine 1.015 (1.002-1.036)
[2017-12-29 15:45] LABS: Bacteria/HPF None Seen HPF (None Seen); Hyaline Casts/LPF 0-3 HYALINE CAST LPF (0-3 Hyaline); RBC/HPF 0-3 HPF (0-3); Squamous Epithelial 0-3 HPF (0-3)
--- NOTE | 2017-12-29 16:28 | HP ---
PRIMARY CARE PROVIDER: Dr. Pastor in [place]. CHIEF COMPLAINT: Referred to the [facility] for confusion, dizziness, suspected TIA. HISTORY OF PRESENT ILLNESS: The patient has a history of aphasia and dementia and is difficult to as sess talking to her daughter. She has had a [id number] expressive aphasia for approximately he re. Today while having lunch with a friend, she got more confused and incoherent. Family states she has been dizzy for 2 days. She had a strange incident similar to this a week ago. It is pertinent that she has had a stroke with aphasia and has also had some significant carotid stenosis, this is be ing followed by Cardiovascular Surgery. 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 She has had an appendectomy. CURRENT MEDICATIONS: Aspirin 325 mg a day, Namenda 10 mg twice a day, metoprolol 25 mg a day, Ranexa 500 mg twice a day, Synthroid 50 mcg a day, Crestor 20 mg a day, losartan 25 mg a day, multivitamin once a day, Prozac 20 mg a day, Lasix 40 mg a day, Linzess 290 mcg a day. ALLERGIES: CODEINE causes nausea. FAMILY HISTORY: Significant for heart disease. SOCIAL HISTORY: Denies tobacco, alcohol, or recreational use. I have discussed her code status with her daughter. She has medical directive and is DNR. REVIEW OF SYSTEMS: Unobtainable due to the lady's dementia and aphasia. PHYSICAL EXAMINATION: GENERAL: Alert, pleasant, in no distress. VITAL SIGNS: Blood pressure 150/80, pulse 72, respirations 18, temperature is 98. HEENT: Reveal pupils equal, round, and reactive to light. Extraocular movements are intact. Sclera e white. Tympanic membranes clear. Nose is clear. Oral mucous membranes are wet. NECK: Supple without jugular venous distention, adenopathy or thyromegaly. LUNGS: Chest clear to auscultation and percussion. CARDIAC: Heart had a regular rate and rhythm. First and second heart sounds are clear. There are n o appreciated murmurs or gallops. ABDOMEN: Soft, bowel sounds are normal. There is no hepatosplenomegaly, no mass, no rebound. EXTREMITIES: Reveal no cyanosis, clubbing or edema. PULSES: Carotid, radial, femoral, and dorsalis pedis pulses symmetric and palpable. SKIN: Warm and dry without bruises or rash. HEME/LYMPH: No tender or swollen lymph nodes in axilla, inguinal or cervical area. NEUROLOGICAL: Cranial nerves II-XII are intact. Deep tendon reflexes were symmetric. Moves all ext remities. Both toes downgoing. LABORATORY AND X-RAY FINDINGS: I find no EKG. We will obtain one and review it. CT [place] s shows severe stenosis, right proximal internal carotid artery. Chest x-ray post-median sternotomy changes. Lung morgan clear. Heart size normal, reviewed by me. Comp metabolic profile normal. CBC: White count 6.4, hemoglobin 13.5, platelet count 181,000. ADMITTING DIAGNOSES: 1. Patient with a significant history of aphasia, dementia with some apparent confusion compared to her normal state. She has a tight right carotid stenosis, suspicious for TIA or stroke. We will obt ain an MRI. 2. Dementia. Continue current medications. 3. Coronary artery disease. We will continue aspirin, Crestor, metoprolol. 4. Dyslipidemia. Continue Crestor. 5. Hypothyroid state. Continue Synthroid. We will review after the MRI is obtained. Quite possibl y will need a cardiovascular surgeon to look at the CT angio to decide if she is a candidate for a ca rotid endarterectomy at this time.
[2017-12-29 16:51] VITALS: BMI 21.2
[2017-12-29] MEDS ORDERED: Ondansetron ODT 4 MG TAB PO PRN (17:03)
[2017-12-29] MEDS ORDERED: Acetaminophen 325 MG TAB PO PRN (17:03)
[2017-12-29] MEDS ORDERED: Rosuvastatin 20 MG TAB PO SCH (21:00)
[2017-12-29] MEDS ORDERED: Aspirin 325 mg Enteric Coated Tablet PO SCH (21:00)
[2017-12-29] MEDS: Vit A,C & E/Lutein/Minerals Tablet PO SCH (22:25)
[2017-12-30 04:42] LABS: #Eosinphils 0.2 thou/uL (0.0-0.7); #Lymphocytes 1.5 thou/uL (1.20-3.40); #Monocytes 0.7 thou/uL (0.11-0.59); #Neutrophils 3.8 thou/uL (1.40-6.50); %Basophils 0.8 % (0.0-1.0); %Eosinophils 2.4 % (0.0-10.0); %Lymphocytes 24.4 % (21.0-51.0); %Monocytes 10.5 % (0.0-10.0); %Neutrophils 61.9 % (42.0-75.0); Hemoglobin 12.6 g/dL (12.0-16.0); Mean Corpuscular HGB CONC 32.8 g/dL (32.0-36.0); Mean Corpuscular Volume 88.6 fL (78.0-98.0); Mean Platelet Volume 6.9 fL (7.4-10.4); Platelet Count 178 thou/uL (130-400); RBC Distribution Width 14.9 % (11.5-14.5); Red Blood Cell (RBC) Count 4.35 mill/uL (4.20-5.40); White Blood Cell (WBC) Count 6.2 thou/uL (4.8-10.8)
[2017-12-30 05:15] LABS: Anion Gap 13 mmol/L (10-20); BUN (Urea Nitrogen) 12 mg/dL (9.8-20.1); Calc. Creatinine Clearance 48 mL/min (70-130); Calcium 9.1 mg/dL (7.8-10.44); Carbon Dioxide 26 mmol/L (23-31); Cardiac Risk 2.5 (Less than 4.5); Chloride 105 mmol/L (98-107); Cholesterol 164 mg/dl (< 200 Desired); Estimated GFR-MDRD 70; Glucose 83 mg/dL (83-110); HDL Cholesterol 65 mg/dL (>60 Neg Risk); LDL Cholesterol, Calculated 77 mg/dL; Potassium 3.5 mmol/L (3.5-5.1); Sodium 140 mmol/L (136-145); Triglycerides 112 mg/dL (Less than 150)
[2017-12-30] MEDS ORDERED: Levothyroxine Sodium 50 MCG TAB PO SCH (06:00)
[2017-12-30] MEDS ORDERED: Enoxaparin Sodium 40 MG/0.4 ML SYRINGE SC SCH (09:00)
[2017-12-30] MEDS ORDERED: Losartan 25 MG TAB PO SCH (09:00)
[2017-12-30] MEDS ORDERED: Aspirin 325 mg Enteric Coated Tablet PO SCH (09:00)
[2017-12-30] MEDS ORDERED: Furosemide 40 MG TAB PO SCH (09:00)
[2017-12-30] MEDS ORDERED: FLUoxetine HCl 20 MG CAP PO SCH (09:00)
--- NOTE | 2017-12-30 10:04 | CON ---
DATE OF CONSULTATION: 12/30/2017 IMPRESSION: 1. Vascular dementia with some intermittent confusion. 2. Past history of subcortical strokes. PLAN: 1. The patient can be discharged home on her current medications of antiplatelet therapy and statin. 2. Office followup. Ms. Matamoros was brought in due to her daughter's concern that her thinking was altered. She was having some delusional thoughts about her son-in-law. There were no focal neurologic symptoms. She came i n and had a CT scan of the brain done. This was unremarkable for any acute changes. There are some extensive small vessel ischemic changes and a short segment of the right internal carotid stenosis. Laboratory studies included a CBC, coags, chemistry panel and urinalysis which were all unremarkable. She has been afebrile since admission. Her vital signs were otherwise stable. On exam, she was alert and cooperative. She was oriented to person and time, but could not name wher e she was. Even after being reoriented, she could not recall what she was told. Her exam was otherw ise nonfocal. I do not see any acute neurologic issues. She has some vascular dementia and can be dealt with as an outpatient.
[2017-12-30] MEDS: Vit A,C & E/Lutein/Minerals Tablet PO SCH (10:06)
[2017-12-30 11:43] VITALS: BP 106/55; TEMP 98.2
--- NOTE | 2017-12-30 15:10 | CON ---
DATE OF CONSULTATION: 12/29/2017 REQUESTING PHYSICIAN: Dr. Winston. CHIEF COMPLAINT: Confusion. HISTORY OF PRESENT ILLNESS: The patient is an 82-year-old woman with coronary disease and congestive heart failure. Around Halloween time last year, she suffered a left hemispheric stroke that left he r with some residual difficulties with expressive aphasia. She has some baseline dementia, but is bolanos fficiently functional that she was able to go out to lunch with someone, who used to act as a sitter for her. When she became confused, felt dizzy, said that she felt like she needed to go home and onc e home told her family that she felt like she needed to go to the hospital. She had another episode of confusion almost with agitation about a week earlier, and over the past week, her confusion seems to have gradually gotten a little bit worse and she has been having some dizziness off and on. She h as not had any noticeable changes in her expressive aphasia or any dysarthria. She has not had any n oticeable facial droop or any focal weakness. She has not reported any focal paresthesias. She has been a little bit more unsteady on her feet, but she has not had any drift in her gait. PAST MEDICAL HISTORY: Significant for coronary disease. She underwent a coronary artery bypass [facility] about 20 years ago, and in the interim, her grafts have all eventually closed. She has an eject ion fraction of around 30%. She has dementia, history of hypothyroidism, ovarian cancer, and dyslipi demia. CURRENT MEDICATIONS: Aspirin a day, Namenda 10 mg twice a day, Toprol 25 mg a day, Ranexa 500 mg twi ce a day, Synthroid 50 mcg a day, Crestor 20 mg a day, losartan 25 mg a day, Prozac 20 mg a day, [place] 40 mg a day, Linzess 290 mcg a day, and a multivitamin a day. SOCIAL HISTORY: She does not smoke. REVIEW OF SYSTEMS: As above. PHYSICAL EXAMINATION: GENERAL: She was pleasant and in no distress. VITAL SIGNS: Heart rate was 72, blood pressure 150/80, temperature was 98.0. NECK: She had no JVD. I was not able to appreciate carotid bruits. CHEST: Clear to auscultation. CARDIOVASCULAR: She had a regular rate and rhythm. NEUROLOGIC: Cranial nerves II-XII and extremity strength seemed to be grossly intact. LABORATORY EXAM: Showed a white count of 6.4, hemoglobin of 13.5, hematocrit 41.8, platelets 181,000 . Electrolytes were normal. BUN 13, creatinine 0.84, glucose 82, calcium 9.0, albumin 4.0. LFTs we re normal. A urinalysis was somewhat equivocal with 7-10 white cells, no bacteria seen. There were 0-3 squamous cells and 0-3 red cells on the microscopic of her urinalysis. Chest x-ray was clear, no table for surgical clips, and sternal wires from her previous bypass surgery, and some significant ao rtic knob calcifications. The head CT showed chronic changes of her left temporal stroke, but no obv ious evidence of an acute stroke. CT angiography showed complex plaque in the right carotid system w ith at least one area of it may represent 70%-80% stenosis. In reviewing the CTA of her carotids fro m a year ago, it is essentially unchanged. The left carotid system has some plaque without any obvio us stenosis. I reviewed a carotid ultrasound that she had in our office in October of this year. On th e right side, her internal carotid velocities were 66, 139, and 70, and common were 54, 40, and 46 fo r a ratio of 3.51. Complex plaquing could be readily appreciated along the bulb and internal carotid artery; however, there was no turbulence or spectral broadening associated with any of the velocity measurements along that segment. On the left side, her internal carotid velocities were 58, 51, and 76, and common were 61, 47, and 46 for a ratio of 1.62. IMPRESSION AND RECOMMENDATIONS: Her confusion and dizziness and even agitation over the last week or so does not seem to me to represent any manifestation of her carotid disease and I agree with Dr. Rolf bryan's assessment from his recent office visit that the ultrasonographic findings seem much more benig n than the CT scan of her carotids did. The pattern of plaque in her carotids is sufficiently comple x that it complicates attempts at drawing conclusions about the degree of stenosis, and at least in t his instance, we would probably rely more heavily on the ultrasound. Even if she does have a high-gr annamaria stenosis on the right side, it would appear to be asymptomatic, and I would recommend a surgery o n it for anything I see here. I will, of course, let Dr. Winters know about her current hospitalizatio n.
--- NOTE | 2017-12-30 19:00 | DIS ---
DATE OF DISCHARGE: 12/30/2017 DISCHARGE DISPOSITION: Home. FOLLOWUP: Follow up with primary care physician, Dr. Pastor in one week. ALLERGIES: CODEINE. DISCHARGE DISPOSITION: Home. Home health care will be resumed through [facility]. DISCHARGE MEDICATIONS: As same as admission medication. No changes were made. BRIEF HOSPITAL COURSE: Patient is an 82-year-old female with vascular dementia, coronary artery dise ase, status post CABG and dyslipidemia who presented to the hospital with stroke like symptoms. Plea se refer to the history and physical dated 01/02/[address] Zarina Winston for further details. The patient was admitted to the hospital with a diagnosis of suspected CVA. CT scan of the brain on admission was negative for acute findings. CT angiogram of the head and neck showed short segment se saba stenosis involving the proximal right internal carotid artery. Patient was monitored in the str dominga unit. The patient was evaluated by Neurology, Dr. Lopez as well as cardiovascular, Dr. Noé ludwig. According to Neurology, patient probably had intermittent confusion secondary to underlying va scular dementia. Dr. Lopez recommended to cancel the MRI per nursing report. For this reason, an MRI was not done. The family agreed with this plan of care. Urinalysis showed 7-10 wbc's without an y bacteria. Urine cultures have been negative so far. Primary care physician is advised to follow u p on the final urine cultures. She is at baseline on the day of discharge. Plan of care was discuss ed with the patient and the family. They stated understanding. CODE STATUS: DO NOT RESUSCITATE. FINAL DIAGNOSES: 1. Vascular dementia with intermittent confusion. 2. Right-sided carotid stenosis. Patient will follow up with Dr. Winters. 3. Chronic kidney disease, stage 2. 4. Coronary artery disease, status post coronary artery bypass grafting. 5. Dyslipidemia. 6. Hypothyroidism. 7. Anxiety, depression.
== END 2017-12-30 13:59 | disposition home health service (06) ==
LOC: ERS 14:11 → 2SE 16:13
PROVIDERS: ADMIT Internal Medicine; ATTEND Internal Medicine
DX: I65.21 Occlusion and stenosis of right carotid artery (principal); F01.50 Vascular dementia, unspecified severity, without behavioral disturbance, psychotic disturbance, mood disturbance, and anxiety; R41.0 Disorientation, unspecified; R42 Dizziness and giddiness; I25.10 Atherosclerotic heart disease of native coronary artery without angina pectoris; E78.5 Hyperlipidemia, unspecified; E03.9 Hypothyroidism, unspecified; N18.2 Chronic kidney disease, stage 2 (mild); I50.9 Heart failure, unspecified; I69.320 Aphasia following cerebral infarction; Z79.82 Long term (current) use of aspirin; Z79.899 Other long term (current) drug therapy; Z88.5 Allergy status to narcotic agent; Z95.1 Presence of aortocoronary bypass graft; Z66 Do not resuscitate
CPT/HCPCS: 70450; 70496; 70498; 71045; 80048; 80053; 80061; 82550; 82553; 82962; 84484; 85025 ×2; 85610; 85730; 87086; 93005; 96372; 97139; 99285; G0378; 36415; 36416; 81003; 81015; J1650

== ENCOUNTER 2018-06-14 12:50 | Observation (INO) | payer MEDICARE ==
[2018-06-14 14:13] LABS: CKMB 4.6 ng/mL (0-6.6)
[2018-06-14] MEDS ORDERED: Ondansetron ODT 4 MG TAB SL PRN (16:11)
[2018-06-14] MEDS ORDERED: Ondansetron PF 4 MG/2 ML Vial IVP PRN (16:11)
[2018-06-14] MEDS ORDERED: Polyethylene Glycol 3350 17 GM Packet PO PRN (16:48)
[2018-06-14 16:58] LABS: Troponin I 0.246 ng/mL (< 0.028)
--- NOTE | 2018-06-14 17:54 | HP ---
REASON FOR ADMISSION: Chest pain rule out. HISTORY OF PRESENT ILLNESS: Ms. Matamoros is a very pleasant 82-year-old woman, who has been transferred from [place] after she presented with chest pain. The patient has a background history of coronary artery disease, status post CABG x5, approximately 25 years ago. She has hypertension, hyperlipidemia, and hypothyroidism. The patient does not recall exactly what time her discomfort started, but she states she actually did not experience any chest pain, but rather left arm pain. Her daughter estimates it might have been approximately at midnight last night. The patient let her daughter know this morning around 09:00 a.m., after which she brought her into the ED, given her history of heart disease. The patient has had no further episodes of pain. She states the pain in her arm was aching in nature, unable to characterize it or rate it in severity. She states it was nonradiating and denies any associated symptoms such as diaphoresis, nausea, or vomiting. She denies having any dizziness. Since then, she has felt well in herself and without any complaints. The patient is known to Dr. Prieto, whom she has not seen in a little over a year. She does not recall the date of her last echo or stress test and states it has been over a year. Per past records, she underwent an EEG on 01/12/2018, which was essentially normal. An ECG done on 12/29/2017 showed normal sinus rhythm with possible left atrial enlargement and left axis deviation with nonspecific intraventricular conduction block. T-wave abnormality seen, and per report, lateral ischemia should be considered. An echo done on 05/31/2017 had demonstrated an EF of 25% to 30% with overall left ventricular function severely depressed and a mildly dilated left atrium with severe mitral regurgitation and aortic valve sclerosis. There were [id number] tricuspid regurgitation and moderate pulmonic regurgitation present. The patient states she has been unable to establish appointments due to frequent cancellations, but is scheduled to see Dr. Prieto in June 2018. REVIEW OF SYSTEMS: Ms. Matamoros denies having any changes with her appetite. Denies having any recent fevers, chills, or sweats. No chest pain or palpitations. No cough, hemoptysis, or shortness of breath. She denies any abdominal pain or cramping. Denies any nausea or vomiting. She does suffer from constipation, but states she has been passing flatus. She denies having any changes with her weight. No melena or hematochezia. Denies any urinary symptoms such as dysuria, hematuria, urgency, or frequency. She does have bilateral lower leg swelling on occasion associated with her heart failure. Denies any skin changes. All other review of systems are negative. PAST MEDICAL HISTORY: 1. Hypertension. 2. Hyperlipidemia. 3. Coronary artery disease. 4. CABG x5, 20 years ago. 5. Hypothyroidism. 6. History of ovarian cancer. 7. Dyslipidemia. 8. History of CVA. 9. Dementia. 10. Anxiety. 11. Depression. PAST SURGICAL HISTORY: 1. CABG x5. 2. Hysterectomy. 3. Tonsillectomy. 4. Right leg angioplasty. SOCIAL HISTORY: The patient lives with her daughter, has a monitoring system in place to watch over her at night. The patient is able to mobilize independently with the help of a walker. She denies any tobacco use or alcohol use. ALLERGIES: CODEINE CAUSES NAUSEA. CURRENT MEDICATIONS: 1. Ranexa 500 mg by mouth twice daily. 2. PreserVision 14,320 units/226 mg/200 units/34.8 mg/0.8 mg: One capsule by mouth twice daily. 3. Levothyroxine 50 mcg by mouth once daily. 4. Aspirin 325 mg by mouth once daily. 5. Metoprolol succinate 25 mg by mouth daily. 6. Crestor 20 mg by mouth daily. 7. Prozac 20 mg by mouth daily. 8. Cozaar 25 mg by mouth daily. 9. Linzess 290 mcg by mouth daily. PHYSICAL EXAMINATION: GENERAL: The patient appears well developed, well nourished, and is in no acute distress. She is found resting comfortably on the stretcher. VITAL SIGNS: Temperature 98.1, pulse 69, respirations 16, blood pressure 139/101, O2 saturation 94% on room air. HEENT: Normocephalic and atraumatic. Pupils are equal, round, and reactive to light. Sclerae are without icterus. Oropharynx is clear. NECK: Supple without lymphadenopathy. LUNGS: Clear to auscultation bilaterally without wheezes, rales, or rhonchi. CARDIAC: Regular rate and rhythm. ABDOMEN: Soft, hypertympanic to percussion, nontender, mildly distended. No bowel sounds present. No guarding or rigidity. EXTREMITIES: No clubbing, cyanosis, or edema. No calf pain or tenderness. NEUROLOGIC: Alert and oriented x3. SKIN: Without rash or jaundice. LABORATORY DATA: CK-MB 4.6. Troponin 0.233. IMPRESSION AND PLAN: Ms. Matamoros is a pleasant 82-year-old woman, admitted for management of following; 1. Left arm pain. The patient reports pain lasting 20 minutes last night around midnight. Denies having any chest pain at anytime. However, she does have dimensions, being admitted for chest pain rule out, given her extensive cardiac history and indeterminate troponin of 0.233. Per Dr. Barajas, she underwent laboratory studies in [place] including a D-dimer, which was negative. It appears that she did receive treatment per ED notes including aspirin, Lovenox, and Lasix. Per triage note, she was transferred from [place] as an NSTEMI. We will obtain outside records for clarification. We will continue to trend troponins. We will obtain an echo since she has a history of heart failure and it has been more than a year since her last echo. We will also consult Cardiology. 2. Constipation. The patient denies any nausea or vomiting. No abdominal pain on exam, she endorses having flatus. We will manage her constipation with MiraLAX. 3. Hypertension. We will resume home medications. Monitor her blood pressure. 4. Hyperlipidemia. We will resume home medications. 5. Hypothyroidism. We will obtain a TSH and resume home medications. 6. Gastrointestinal prophylaxis. 7. Deep venous thrombosis prophylaxis. The patient's case was discussed with Dr. Barajas, who agrees with plan of care as described above. Job ID: [id number]
[2018-06-14 20:02] LABS: Troponin I 0.217 ng/mL (< 0.028)
[2018-06-14] MEDS ORDERED: Rosuvastatin 20 MG TAB PO SCH (21:00)
[2018-06-15 05:32] LABS: #Eosinphils 0.2 thou/uL (0.0-0.7); #Lymphocytes 1.2 thou/uL (1.20-3.40); #Monocytes 0.8 thou/uL (0.11-0.59); %Basophils 0.4 % (0.0-1.0); %Eosinophils 2.8 % (0.0-10.0); %Lymphocytes 19.8 % (21.0-51.0); %Monocytes 12.2 % (0.0-10.0); %Neutrophils 64.9 % (42.0-75.0); Hemoglobin 12.4 g/dL (12.0-16.0); Mean Corpuscular HGB CONC 31.8 g/dL (32.0-36.0); Mean Corpuscular Hemoglobin 28.3 pg (27.0-31.0); Mean Corpuscular Volume 89.2 fL (78.0-98.0); Mean Platelet Volume 6.8 fL (7.4-10.4); Platelet Count 178 thou/uL (130-400); RBC Distribution Width 14.7 % (11.5-14.5); Red Blood Cell (RBC) Count 4.39 mill/uL (4.20-5.40); White Blood Cell (WBC) Count 6.2 thou/uL (4.8-10.8)
[2018-06-15 05:59] LABS: Anion Gap 12 mmol/L (10-20); BUN (Urea Nitrogen) 13 mg/dL (9.8-20.1); Calc. Creatinine Clearance 47 mL/min (70-130); Carbon Dioxide 24 mmol/L (23-31); Cardiac Risk 2.7 (Less than 4.5); Chloride 106 mmol/L (98-107); Cholesterol 154 mg/dl (< 200 Desired); Estimated GFR-MDRD 71; Glucose 87 mg/dL (83-110); HDL Cholesterol 58 mg/dL (>60 Neg Risk); LDL Cholesterol, Calculated 70 mg/dL; Potassium 3.6 mmol/L (3.5-5.1); Sodium 138 mmol/L (136-145); Triglycerides 128 mg/dL (Less than 150)
[2018-06-15] MEDS ORDERED: Levothyroxine Sodium 50 MCG TAB PO SCH (06:00)
[2018-06-15] MEDS ORDERED: FLUoxetine HCl 10 MG CAP PO SCH (09:00)
[2018-06-15] MEDS ORDERED: Losartan 25 MG TAB PO SCH (09:00)
[2018-06-15 16:17] VITALS: BP 143/65; TEMP 99.2
--- NOTE | 2018-06-15 19:41 | CON ---
DATE OF CONSULTATION: HISTORY OF PRESENT ILLNESS: Emily Matamoros is an 82-year-old white female followed for many years. She has extensive cardiac history as noted on consultation note from May 2017. At that time, she was admitted after a fall at home. She had somewhat elevated troponin I and was felt that she probably had a non-STEMI. She underwent cardiac catheterization and was found to have all 5 bypass grafts occluded. She had severe diffuse disease, the most critical lesion was 99% lesion in the circumflex at the left main. It was felt that there was no percutaneous intervention that would be beneficial. She did not wish repeat surgery. Also, her ejection fraction was 25% to 30% with qksxwdfp-[id number]-acggqy mitral regurgitation. We discussed ICD placement, however, ultimately she declined. During that admission, except for the time in the medical lab director, she was DNR. She also wishes to be DNR this hospitalization. She now was admitted after 20 to 30 minutes of left arm pain. She cannot give much history regarding the episode and does not really remember very well. She apparently did not have any significant shortness of breath. It was also of note that the low-dose furosemide that she was placed on for her severe left ventricular dysfunction and severe mitral regurgitation, it is no longer on her medicine list. PAST MEDICAL HISTORY: Hyperlipidemia, coronary artery disease, hypothyroidism, ovarian cancer, cholelithiasis, CVA with some residual aphasia. No history of diabetes. PAST SURGICAL HISTORY: Breast biopsies, vaginal hysterectomy with bladder suspension, CABG. History of ovarian cancer, undergoing chemotherapy in 1999. Appendectomy. MEDICATIONS: 1. Ranexa 500 mg b.i.d. 2. Aspirin 325 daily. 3. Prozac 20 mg q.a.m. 4. Levothyroxine 50 mcg q.a.m. 5. Linzess 290 mcg q.a.m. 6. Losartan 25 mg daily. 7. Magnesium 250 mg b.i.d. 8. Metoprolol 25 q.a.m. 9. Rosuvastatin 20 mg at bedtime. 10. PreserVision supplement. ALLERGIES: CODEINE. SOCIAL HISTORY: She does not smoke or drink. FAMILY HISTORY: Mother had myocardial infarction, of congestive heart failure. REVIEW OF SYSTEMS: Difficult to obtain with the patient's memory. PHYSICAL EXAMINATION: VITAL SIGNS: Blood pressure 127/63 and pulse of 65. HEENT: PERRL. NECK: Supple. CHEST: Clear. CARDIAC: S1 and S2 normal without any S3, S4, or murmurs. ABDOMEN: Normal bowel sounds without tenderness or organomegaly. EXTREMITIES: Revealed no clubbing, cyanosis, or edema. NEUROLOGIC: Grossly intact except for mild aphasia and mild right arm weakness. She has no palpable left arm tenderness. LABORATORY DATA: EKG revealed normal sinus rhythm with left axis deviation, nonspecific ST and T-wave changes. Hemoglobin 12.4, hematocrit 39.1, white count 6200, platelets 178,000. Sodium 138, potassium 3.6, chloride 106, carbon dioxide 24, BUN 13, creatinine 0.77. Troponin I 0.246. BNP 1381. Cholesterol 154, triglycerides 128, HDL 58, LDL 70. TSH is normal. IMPRESSION: 1. Probable small non-STEMI. 2. Status post coronary artery bypass graft with all 5 bypass grafts closed and severe coronary artery disease. 3. Status post cerebrovascular accident with mild aphasia and right-sided weakness. 4. Hypercholesterolemia with borderline LDL control. 5. Hypertension. 6. Ischemic cardiomyopathy with ejection fraction of 25% to 30%. 7. Julipvvz-mk-ckaqvx mitral regurgitation. 8. Peripheral vascular disease, status post interventions. 9. Positive family history. PLAN: Ms. Matamoros wishes to be DNR. There is little to offer her in the way of intervention, even after review again of her cath films. She should continue to be treated medically. Ranexa will be increased to 1000 mg b.i.d. Also, her furosemide and potassium should be resumed. Since there is nothing else to offer, I feel she may be discharged. We did also discuss again possibility of ICD placement, which she declines. Job ID: [id number]
[2018-06-15] MEDS ORDERED: Aspirin 325 mg Enteric Coated Tablet PO SCH (21:00)
--- NOTE | 2018-06-15 21:29 | DIS ---
DATE OF ADMISSION: 06/14/2018 DATE OF DISCHARGE: 06/15/2018 ALLERGIES: CODEINE. CHIEF COMPLAINT: Left arm pain, indeterminant troponin. FINAL DIAGNOSES: 1. Indeterminant troponin. 2. Chronic systolic congestive heart failure. 3. Ischemic cardiomyopathy, ejection fraction approximately 25%. 4. Severe triple vessel coronary artery disease, status post five-vessel coronary artery bypass graft with known graft occlusion per left heart catheterization in 05/2017. 5. Plsddypl-mv-clnfbp mitral regurgitation. PROCEDURES PERFORMED: None. LABORATORY RESULTS: White blood cell count 6.2, hemoglobin 12.4, and hematocrit 39.1. Sodium 138, potassium 3.6, BUN 13, and creatinine 0.77. Serial troponin 0.233 and 0.217 respectively. BNP 1318. Triglycerides 128, cholesterol 154, LDL 70, HDL 58, and TSH 1.58. IMAGING RESULTS: Echocardiogram showing ejection fraction 25% to 30%, severely depressed left ventricular systolic function, severe mitral regurgitation, moderate aortic regurgitation, qxrh-jp-bzzdhhmo tricuspid regurgitation, mild pulmonic regurgitation. CONSULTATION: Cardiology, Dr. Prieto. HOSPITAL COURSE: The patient is a pleasant 82-year-old female, patient of Dr. Prieto, with known ischemic cardiomyopathy; coronary artery disease, status post coronary artery bypass graft x5 with known graft occlusion, hypertension, hyperlipidemia, hypothyroidism, and TIA, who presented as a transfer from [facility] with complaints of left arm pain. The patient is a poor historian and history has been taken from her daughter, who was at bedside. The daughter states that she lives with her mother, and on the night prior to her arrival at the hospital, she pressed her life alert button that alerts the daughter that something is wrong. The daughter checked on her and she was resting comfortably; however, the next morning, the patient told her daughter that she believed that she had had a heart attack overnight, although her chief complaint was left arm pain. They presented to their PCP's office in [place], who advised them to go to the ER for further workup. Workup at [facility] revealed an indeterminant troponin. EKG showed inferolateral ischemia, and she was transferred to our facility for higher level of care. The patient has remained chest pain free as well as free of any left arm pain. She has ambulated without issue. She denies any shortness of breath or dizziness or palpitations. Her troponin has been stable at 0.233 and 0.217 respectively. She was seen in consultation with Dr. Prieto, who recommended continued medical therapy at this time. Per conversation with Dr. Prieto, he believes that she is not a candidate for further revascularization based on her last left heart catheterization which showed occluded bypass graft. He increased her Ranexa to 1000 mg b.i.d., as well as reinstitute her Lasix and potassium. The patient feels well at this time. She has been cleared by Cardiology for discharge. PHYSICAL EXAMINATION: VITAL SIGNS: Blood pressure 127/63, pulse 65, and O2 saturation 94% on room air. GENERAL: The patient is a well-appearing, elderly female, in no acute distress, sitting comfortably at bed. HEENT: Atraumatic and normocephalic. Eye movement intact. NECK: Supple, no obvious JVD, no carotid bruits. No lymphadenopathy. RESPIRATORY: Regular respiratory rate and pattern, overall clear to ausculation bilaterally. CARDIOVASCULAR: S1 and S2, regular rate and rhythm. Soft systolic murmur, grade 2/6. GI: Soft, nontender. Positive bowel sounds. NEUROLOGIC: Cranial nerves I through XII grossly intact, nonfocal. EXTREMITIES: +2 DP pulses bilaterally, no edema. CONDITION AT DISCHARGE: Stable. DISCHARGE MEDICATIONS: 1. Aspirin 325 mg daily. 2. Fluoxetine 10 mg p.o. q.a.m. 3. Levothyroxine 50 mcg p.o. q.a.m. 4. Linzess 72 mcg capsule 290 mcg p.o. q.a.m. 5. Losartan 25 mg p.o. q.a.m. 6. Magnesium citrate 250 mg p.o. b.i.d. 7. Metoprolol succinate 25 mg p.o. daily. 8. Crestor 20 mg p.o. at bedtime. New medications include; 1. Furosemide 20 mg one p.o. daily. 2. Potassium chloride 10 mEq one p.o. daily. 3. Ranexa 1000 mg p.o. b.i.d. DISCHARGE DISPOSITION: Home. PLAN: The patient will continue medical therapy for her cardiomyopathy and coronary artery disease. She has followup with Dr. Prieto in approximately 3 weeks. She will contact his office with further symptoms. All plans and care and changes in medicine have been discussed with the patient and her caregivers at length. All questions were answered to the patient's satisfaction. Approximately 30 minutes was spent in the management and discharge of this patient. Job ID: [id number]
== END 2018-06-15 17:26 | disposition home or self-care (01) ==
LOC: ERS 12:50 → 2SW 13:49
PROVIDERS: ADMIT Internal Medicine; ATTEND Internal Medicine
DX: M79.602 Pain in left arm (principal); I11.0 Hypertensive heart disease with heart failure; I50.22 Chronic systolic (congestive) heart failure; I34.0 Nonrheumatic mitral (valve) insufficiency; E03.9 Hypothyroidism, unspecified; I25.10 Atherosclerotic heart disease of native coronary artery without angina pectoris; E78.5 Hyperlipidemia, unspecified; F41.9 Anxiety disorder, unspecified; F32.9 Major depressive disorder, single episode, unspecified; F03.90 Unspecified dementia, unspecified severity, without behavioral disturbance, psychotic disturbance, mood disturbance, and anxiety; K59.00 Constipation, unspecified; Z79.82 Long term (current) use of aspirin; Z79.899 Other long term (current) drug therapy; Z88.5 Allergy status to narcotic agent; Z95.1 Presence of aortocoronary bypass graft
CPT/HCPCS: 80048; 80061; 82553; 83880; 84443; 84484 ×2; 85025; 93005; 93306; 94760; 99285; G0378; 36415

== ENCOUNTER 2018-06-18 15:46 | Observation (INO) | payer MEDICARE ==
[2018-06-18 17:31] VITALS: BMI 16.9
[2018-06-18] MEDS ORDERED: Ondansetron ODT 4 MG TAB PO PRN (22:01)
[2018-06-18] MEDS ORDERED: Ondansetron PF 4 MG/2 ML Vial IVP PRN (22:01)
[2018-06-18] MEDS ORDERED: Acetaminophen 325 MG TAB PO PRN (22:01)
[2018-06-18] MEDS ORDERED: hydrALAZINE 20 MG/ML VIAL SLOW IVP PRN (22:10)
[2018-06-18] MEDS ORDERED: Melatonin 3 MG TAB PO PRN (22:13)
[2018-06-19] MEDS: Diabetic Tussin 200 MG/10 ML UDCUP PO PRN ×2 (03:03→20:49)
[2018-06-19 05:02] LABS: #Eosinphils 0.1 thou/uL (0.0-0.7); #Lymphocytes 0.7 thou/uL (1.20-3.40); #Monocytes 0.9 thou/uL (0.11-0.59); #Neutrophils 5.8 thou/uL (1.40-6.50); %Basophils 0.2 % (0.0-1.0); %Eosinophils 0.7 % (0.0-10.0); %Monocytes 12.5 % (0.0-10.0); %Neutrophils 77.7 % (42.0-75.0); Hemoglobin 12.4 g/dL (12.0-16.0); Mean Corpuscular HGB CONC 32.2 g/dL (32.0-36.0); Mean Corpuscular Hemoglobin 28.2 pg (27.0-31.0); Mean Corpuscular Volume 87.7 fL (78.0-98.0); Mean Platelet Volume 6.7 fL (7.4-10.4); Platelet Count 175 thou/uL (130-400); RBC Distribution Width 14.6 % (11.5-14.5); Red Blood Cell (RBC) Count 4.41 mill/uL (4.20-5.40); White Blood Cell (WBC) Count 7.4 thou/uL (4.8-10.8)
[2018-06-19 05:20] LABS: Anion Gap 13 mmol/L (10-20); BUN (Urea Nitrogen) 13 mg/dL (9.8-20.1); Calc. Creatinine Clearance 39 mL/min (70-130); Carbon Dioxide 25 mmol/L (23-31); Cardiac Risk 2.6 (Less than 4.5); Chloride 102 mmol/L (98-107); Cholesterol 156 mg/dl (< 200 Desired); Estimated GFR-MDRD 73; Glucose 93 mg/dL (83-110); HDL Cholesterol 59 mg/dL (>60 Neg Risk); LDL Cholesterol, Calculated 75 mg/dL; Potassium 3.2 mmol/L (3.5-5.1); Sodium 137 mmol/L (136-145); Triglycerides 109 mg/dL (Less than 150)
--- NOTE | 2018-06-19 06:11 | HP ---
PRIMARY CARE PHYSICIAN: CODE STATUS: DNR, discussed with family. TIME OF EVALUATION: 10:00 p.m. CHIEF COMPLAINT: Nausea, vomiting, and change in mental status. HISTORY OF PRESENT ILLNESS: This is an 82-year-old female patient with past medical history of hypertension; dementia; coronary artery disease, status post CABG 20 years ago; hypothyroidism; dyslipidemia; CVA; and dementia. The patient came to the hospital after having an episode of nausea, vomiting, and feeling very weak. As per daughter, the patient has been having significant change of mentation and also having some inability to find the right words to talk. The patient is still having those symptoms during my examination, associated with some coordination problems in the right hand. Symptoms are severe. No clear triggers. No alleviating factors. Has been present for the past few days. REVIEW OF SYSTEMS: Unable to fully obtain since the patient is confused; however, she did not report the following symptoms. CONSTITUTIONAL: No fever or chills. RESPIRATORY: No shortness of breath. CARDIOVASCULAR: No chest pain or palpitation. GASTROINTESTINAL: The patient has some nausea. SUGAR PRESSER: Confusion. GENITOURINARY: No burning on urination. EXTREMITIES: No leg swelling. Further review of systems, we got support from the daughter. All other systems were reviewed and negative except for the findings mentioned above. PAST MEDICAL HISTORY: As mentioned in the HPI. PAST SURGICAL HISTORY: CABG x5, hysterectomy, tonsillectomy, and right leg angioplasty. SOCIAL HISTORY: Lives with daughter. No alcohol, no drugs. ALLERGIES: TO CODEINE. REPORTED MEDICATIONS: 1. Ranexa. 2. PreserVision. 3. Levothyroxine. 4. Aspirin. 5. Metoprolol. 6. Crestor. 7. Prozac. 8. Cozaar. 9. Linzess. PHYSICAL EXAMINATION: VITAL SIGNS: On presentation, the patient has temperature 99.1, heart rate 69, respiratory rate was 16, oxygen saturation 93%, and blood pressure 120/60. GENERAL APPEARANCE: The patient is alert and disoriented, not in acute distress. HEENT: Eyes, normal conjunctivae. Moist oral mucosa. Anicteric. NECK: No JVD. RESPIRATORY: Bilateral air entry. No rales. No wheezing. Symmetric expansion. CARDIOVASCULAR: Normal rate. Regular rhythm. No murmurs. No gallop. No edema. ABDOMEN: Soft. Normal bowel sounds. MUSCULOSKELETAL: Baseline range of motion and strength. No tenderness. SKIN: Warm, intact. No pallor. No rash. Peripheral pulses are present. Capillary refill seems to be intact. NEURO: No evidence of any new focal weakness. Baseline speech is affected. The patient is unable to find the right words, when she wants to talk. The patient also has a right upper arm apraxia during my examination. PSYCH: The patient is in good mood. No anxiety. Suboptimal judgment. LABORATORY DATA: EKG, chest x-ray were sent prior to transfer. Please see paper chart for results. ASSESSMENT AND PLAN: The patient will be placed in the hospital with following medical problems: 1. Possible transient ischemic attack. The patient is aphasic with change in mentation. Symptoms have been present for couple of days, no improving. We will do a stroke protocol, we will treat accordingly depending on findings. 2. Controlled hypertension, we will allow permissive hypertension. We will reconcile home medications. 3. Hyperlipidemia. Low-cholesterol diet is advised, reconcile home medications. 4. Hypothyroidism, reconcile home medications. Continue hormone replacement. 5. Coronary artery disease, this problem seems to be stable, reconcile home medications. 6. Deep venous thrombosis prophylaxis. Job ID: [id number]
[2018-06-19] MEDS ORDERED: Lorazepam 1 MG TAB PO SCH (07:15)
[2018-06-19] MEDS: Levothyroxine Sodium 50 MCG TAB PO SCH (08:03)
--- NOTE | 2018-06-19 09:34 | ULT ---
CAROTID DOPPLER ULTRASOUND: HISTORY: Transient ischemic attack. COMPARISON: CT angiogram from 12/29/2017. TECHNIQUE: Real-time, menjivar-scale, and color evaluation with spectral analysis of the extracranial carotid and ve rtebral arteries was performed. FINDINGS: There is moderate atherosclerotic plaque of both carotid bulbs and a mildly elevated peak systolic ve locity of the right internal carotid artery. There is antegrade flow in both vertebral arteries. IMPRESSION: Mild (50%-69%) stenosis of the right internal carotid artery. POS: [facility]
[2018-06-19] MEDS: Aspirin 325 mg Enteric Coated Tablet PO SCH (10:24)
[2018-06-19] MEDS: Magnesium Oxide 250 MG TAB PO SCH ×2 (10:26→20:49)
[2018-06-19] MEDS: Potassium Chloride 10 MEQ TAB PO SCH (10:29)
[2018-06-19] MEDS: FLUoxetine HCl 10 MG CAP PO SCH (10:30)
[2018-06-19] MEDS: Enoxaparin Sodium 40 MG/0.4 ML SYRINGE SC SCH (10:32)
--- NOTE | 2018-06-19 10:55 | MRI ---
MRI BRAIN WITHOUT CONTRAST: HISTORY: Stroke, difficulty forming words. FINDINGS: Comparison is made with the exam of 11/21/2017. Changes of cortical atrophy, chronic small-vessel ischemic disease, and old infarctions in the left p arietal lobe and bilateral cerebellar hemispheres are again seen. The ventricular size is stable and the basilar cisterns are patent.. Cavum septum pellucidum et vergae is again noted. No restricted diffusion is seen. There is no evidence of acute infarct, hemorrhage, midline shift or abnormal extraaxial fluid collections. There is minimal mucosal disease in the paranasal sinuses. Absence of [place] intraocular lenses is again seen. IMPRESSION: No evidence of acute intracranial process. POS: [facility]
--- NOTE | 2018-06-19 18:34 | PDOC.PN ---
- Subjective Encounter Start Date: 06/19/18 Encounter Start Time: 18:20 Subjective: f/u for AMS of unclear etiology with recent NSTEMI medically managed -: Recent increase of Ranexa. More alert this pm per daughter. - Objective Resuscitation Status - Order Detail: 06/18/18 22:01 Resuscitation Status Routine Resuscitation Status: DNAR: NO Resuscitation Discussed with: as discussed with pt MAR Reviewed: Yes Vital Signs & Weight: Vital Signs (12 hours) Temp Pulse Pulse Pulse Resp BP BP 06/19/18 16:00 97.6 F 60 16 06/19/18 11:49 98.1 F 69 18 06/19/18 09:51 77 67 153/79 H 111/58 L 06/19/18 09:50 76 67 74 111/58 L 119/72 06/19/18 07:45 98.9 F 67 18 BP Pulse Ox 06/19/18 16:00 95/45 L 93 L 06/19/18 11:49 112/66 91 L 06/19/18 09:51 06/19/18 09:50 96 06/19/18 07:45 119/65 90 L Weight Admit Weight 99 lb 1 oz Weight 99 lb 1 oz I&O: 06/18/18 06/19/18 06/20/18 06:59 06:59 06:59 Intake Total 250 Balance 250 Result Diagrams: 06/19/18 04:47 06/19/18 04:47 Radiology Reviewed by me: Yes (MRI brain - no acute process; Carotid sono - mild stenosis R ICA) EKG Reviewed by me: Yes (Tele - ) Phys Exam - Physical Examination alert, responds briefly to questions, tired appearing mild conjunctival injection, dry oral mucosa HEENT: PERRLA Neck: no nodes, no JVD, supple, full ROM Respiratory: no wheezing, no rales, no rhonchi, clear to auscultation bilateral S1, S2 Cardiovascular: RRR, no significant murmur, no rub, gallop Gastrointestinal: soft, non-tender, no distention, positive bowel sounds Musculoskeletal: no edema, pulses present Neurological: normal sensation, moves all 4 limbs Skin: normal turgor, cap refill <2 seconds Dx/Plan (1) Acute metabolic encephalopathy Code(s): G93.41 - METABOLIC ENCEPHALOPATHY Status: Acute Comment: Likely multifactorial including dehydration, ? UTI, recent NSTEMI, advanced age and multiple hospitalizations, continue supportive mgmt, serial monitoring (2) Nausea & vomiting Code(s): R11.2 - NAUSEA WITH VOMITING, UNSPECIFIED Status: Acute Qualifiers: Vomiting type: unspecified Vomiting Intractability: unspecified Qualified Code(s): R11.2 - Nausea with vomiting, unspecified Comment: Likely due to iatrogenic component with Ranexa and Linzess, hold home meds, Zofran IV, encourage increased free-H2O (3) NSTEMI (non-ST elevated myocardial infarction) Code(s): I21.4 - NON-ST ELEVATION (NSTEMI) MYOCARDIAL INFARCTION Status: Acute Comment: Medical mgmt, ASA, Statin (4) Dysphasia Code(s): R47.02 - DYSPHASIA Status: Chronic Comment: DISTRESSER evaluation, no acute CVA with negative MRI brain (5) Hypothyroidism Code(s): E03.9 - HYPOTHYROIDISM, UNSPECIFIED Status: Chronic Qualifiers: Hypothyroidism type: acquired Qualified Code(s): E03.9 - Hypothyroidism, unspecified Comment: Continue Levothyroxine 50mcg daily - Plan plan discussed w/ family, PT/OT, social contact worker, speech therapy, out of bed/ ambulate Hold Ranexa -: Hold Linzess -: Continue ASA -: OOB with PT -: Encourage increased free H2O intake * AM lab: BMP, Ucx
[2018-06-19] MEDS ORDERED: Rosuvastatin 20 MG TAB PO SCH (21:00)
--- NOTE | 2018-06-19 22:48 | CON ---
DATE OF CONSULTATION: 06/19/2018 CONSULTING PHYSICIAN: Hospitalist Service. IMPRESSION: 1. Vomiting of uncertain etiology. 2. 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 3. 50% stenosis of the right carotid. 4. Congestive heart failure with ejection fraction of 25% to 30%. PLAN: 1. Continue aspirin and Crestor. 2. Seek GI consultation as an outpatient. HISTORY OF PRESENT ILLNESS: Ms. Matamoros is an 82-year-old woman who lives at home with the assistance of her daughter. She has had some both physical and cognitive decline over the last few years. She has had some progressive language difficulties with word-finding trouble. She gets around the house relatively independently, but needs assistance for most of her activities of daily living. She has had some recurrent vomiting, which has not been evaluated. She had some severe vomiting and her daughter became concerned and brought her to the emergency room. She got admitted for a stroke workup. She had a CT angiogram which showed some evidence of right carotid stenosis. A followup ultrasound showed 50% to 69% stenosis on the right. MRI of the brain showed an old area of infarct involving the left temporal lobe as well as moderate amount of periventricular ischemic changes. No acute changes were found. PAST MEDICAL HISTORY: Vascular dementia, hypertension, CHF, and coronary artery disease. ALLERGIES: CODEINE. SOCIAL HISTORY: No tobacco or alcohol use. FAMILY HISTORY: Noncontributory. MEDICATIONS: Medication list was reviewed. REVIEW OF SYSTEMS: Difficult to obtain due to her cognitive impairment. PHYSICAL EXAMINATION: GENERAL: She is a well-nourished, elderly lady, lying in bed, in no distress. VITAL SIGNS: Stable. She is afebrile. HEENT: Pupils equal and reactive. Conjunctivae clear. Oropharynx clear. NECK: Supple. No lymphadenopathy. EXTREMITIES: No cyanosis, clubbing, or edema. NEUROLOGIC: She was arousable and cooperative. Her speech seemed to be clear, but she had some word-finding difficulty. She could repeat and name objects. Cranial nerves appear to be intact. 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 She did not have any fix or drift. Sensation was intact to light touch. She reportedly can walk with a walker. No abnormal movements were seen. SUMMARY: This is an elderly woman who was brought in due to vomiting. Her neurologic workup is unremarkable other than the effects of her vascular disease resulting in secondary cognitive and word-finding problems. I agree with current management. She appears to be stable for discharge. Job ID: [id number]
[2018-06-20] MEDS: Levothyroxine Sodium 50 MCG TAB PO SCH (05:18)
[2018-06-20] MEDS: Diabetic Tussin 200 MG/10 ML UDCUP PO PRN ×2 (05:18→15:02)
[2018-06-20 05:25] LABS: Anion Gap 11 mmol/L (10-20); BUN (Urea Nitrogen) 15 mg/dL (9.8-20.1); Calc. Creatinine Clearance 39 mL/min (70-130); Calcium 9.2 mg/dL (7.8-10.44); Carbon Dioxide 27 mmol/L (23-31); Chloride 102 mmol/L (98-107); Estimated GFR-MDRD 73; Glucose 85 mg/dL (83-110); Potassium 3.4 mmol/L (3.5-5.1); Sodium 137 mmol/L (136-145)
[2018-06-20 06:42] LABS: Bilirubin Negative (Negative); Blood, Urine Negative (Negative); Clarity CLEAR (Clear); Glucose, Urine (Dipstick) Negative (Negative); Leukocyte Small (Negative); Nitrite Negative (Negative); Protein, Urine (Dipstick) Negative (Neg-Trace); Specific Gravity, Urine 1.018 (1.002-1.036)
[2018-06-20] MEDS: FLUoxetine HCl 10 MG CAP PO SCH (10:44)
[2018-06-20] MEDS: Aspirin 325 mg Enteric Coated Tablet PO SCH (10:45)
[2018-06-20] MEDS: Potassium Chloride 10 MEQ TAB PO SCH (10:45)
[2018-06-20] MEDS: Magnesium Oxide 250 MG TAB PO SCH (10:45)
[2018-06-20] MEDS: Enoxaparin Sodium 40 MG/0.4 ML SYRINGE SC SCH (10:45)
[2018-06-20 15:59] VITALS: BP 119/64; TEMP 98.2
--- NOTE | 2018-06-20 19:53 | DIS ---
DATE OF ADMISSION: 06/18/2018 DATE OF DISCHARGE: 06/20/2018 DISCHARGE DIAGNOSES: 1. Acute metabolic encephalopathy, multifactorial, resolved. 2. Nausea and vomiting, multifactorial, resolved. 3. Status post non-ST elevation myocardial infarction, medically managed. 4. Dysphagia/dysarthria, chronic. 5. Hypothyroidism, stable. CONSULTATIONS: Dr. Nate Lopez with Neurology Service. PERTINENT LAB AND X-RAY FINDINGS: Potassium ranged between 3.2 to 3.4. Total cholesterol 156, triglycerides 109, HDL 59, LDL 75. CBC showed a white blood cell count of 7.4, hemoglobin 12.4, hematocrit 39, platelet count 175 with 78% neutrophils. Urinalysis showed trace ketones and small leukocyte esterase. MRI of the brain dated 06/19/2018, showed no acute intracranial process. Chronic ischemic white matter changes noted. Age-related atrophy noted. Carotid Doppler study dated 06/19/2018, showed 50% to 69% stenosis of the right internal carotid artery. HOSPITAL COURSE: The patient was observed after presenting with nausea, vomiting, and altered mental status. The patient with multiple comorbid status including recent non-ST elevation myocardial infarction, medically managed with recent hospital admission and discharge from 06/14/2018 to 06/15/2018. The patient underwent neurologic evaluation including neuro imaging with MRI, modality showing no acute intracranial process. Carotid Doppler study was also performed showing mild stenosis of the right internal carotid artery. The patient was encouraged with increased fluid replacement as well as decrease in Ranexa due to potential side effect of increased nausea and vomiting. The patient with multifactorial metabolic encephalopathy, improving with general supportive management. Telemetry monitoring showed sinus mechanism without acute arrhythmia or dysrhythmia and the patient overall remained clinically stable. I have discussed followup instructions with the patient and her daughter at the time of discharge who verbalized understanding and in agreement. The patient overall clinically stable and ready for discharge on 06/20/2018. DISCHARGE MEDICATIONS: 1. Enteric-coated aspirin 325 mg p.o. at bedtime. 2. Prozac 20 mg p.o. q.a.m. 3. Levothyroxine 50 mcg p.o. daily. 4. Linzess 290 mcg p.o. q.a.m. 5. Cozaar 25 mg p.o. q.a.m. 6. Magnesium citrate 250 mg p.o. b.i.d. 7. Toprol-XL 25 mg p.o. q.a.m. 8. Crestor 20 mg p.o. at bedtime. 9. Multivitamin 1 tablet p.o. b.i.d. 10. Lasix 20 mg p.o. daily, hold until 06/22/2018. 11. Potassium chloride 10 mEq p.o. daily. 12. Ranexa 500 mg p.o. b.i.d. FOLLOWUP: The patient to follow up with her primary care provider, Dr. Ravinder Pastor within 7 days of discharge. The patient may follow up with Dr. Lopez with Neurology Service and to call his office for appointment time and date. CONDITION ON DISCHARGE: Stable. ACTIVITY: Ad-george. DIET: Regular. CODE STATUS: Do not attempt resuscitation. DISPOSITION: Home with [facility], 06/20/2018. Job ID: [id number]
== END 2018-06-20 18:20 | disposition home or self-care (01) ==
LOC: 2SE 16:56
PROVIDERS: ADMIT Family Medicine; ATTEND Family Medicine
DX: G93.41 Metabolic encephalopathy (principal); R11.2 Nausea with vomiting, unspecified; I25.2 Old myocardial infarction; E03.9 Hypothyroidism, unspecified; F03.90 Unspecified dementia, unspecified severity, without behavioral disturbance, psychotic disturbance, mood disturbance, and anxiety; I11.0 Hypertensive heart disease with heart failure; I50.9 Heart failure, unspecified; I65.21 Occlusion and stenosis of right carotid artery; I25.10 Atherosclerotic heart disease of native coronary artery without angina pectoris; Z66 Do not resuscitate; Z86.73 Personal history of transient ischemic attack (TIA), and cerebral infarction without residual deficits; Z79.82 Long term (current) use of aspirin; Z79.899 Other long term (current) drug therapy; Z88.5 Allergy status to narcotic agent; Z95.1 Presence of aortocoronary bypass graft
CPT/HCPCS: 70551; 80048 ×2; 80061; 81001; 85025; 87086; 93880; 96372 ×2; 96374; 97116; 97139 ×6; 97535; G0378; G0379; 36415; J1650; J2405

== ENCOUNTER 2018-09-17 06:28 | Inpatient (IN) | payer MEDICARE ==
[2018-09-17] MEDS ORDERED: Acetaminophen 325 MG TAB PO PRN (08:14)
[2018-09-17] MEDS ORDERED: Ondansetron ODT 4 MG TAB PO PRN (08:14)
[2018-09-17] MEDS ORDERED: Ondansetron PF 4 MG/2 ML Vial IVP PRN (08:14)
[2018-09-17 08:15] LABS: Troponin I Less than 0.010 ng/mL (< 0.028)
[2018-09-17] MEDS ORDERED: Losartan 25 MG TAB PO SCH (09:00)
--- NOTE | 2018-09-17 09:37 | MRI ---
EXAM: MRI of the brain without contrast HISTORY: TIA COMPARISON: 06/19/2018 TECHNIQUE: Multiplanar multisequence MR images were obtained of the brain without IV contrast. FINDINGS: Scattered foci of high T2/FLAIR signal in the subcortical and periventricular white matter are likely secondary to small vessel ischemic disease. There are 2 very small areas of restricted diffusion in the left periventricular white matter which l ikely represent small acute lacunar infarctions from small vessel ischemic disease. The largest of the 2 areas measures 4 mm in diameter. No hydronephrosis. No extra-axial fluid collection or intracranial hemorrhage. The expected flow voids are present. Corpus callosum, pituitary, and craniocervical junction are within normal limits. The calvarium and overlying soft tissues are unremarkable. The paranasal sinuses are well aerated. Fluid is seen in the right mastoid air cells. IMPRESSION: Extensive small vessel ischemic disease with small areas of acute lacunar infarction in the left gwen ventricular white matter.
[2018-09-17 10:46] LABS: Troponin I 0.026 ng/mL (< 0.028)
[2018-09-17 12:43] VITALS: BMI 19.1
--- NOTE | 2018-09-17 13:00 | HP ---
CHIEF COMPLAINT: Altered mental status. HISTORY OF PRESENT ILLNESS: This patient is an 82-year-old female, who has a history of dementia and presents with her daughter as a transfer from the [place] [facility]. The patient apparently was in her usual state of health. Last evening, ate her dinner and subsequently went to bed. Her daughter has her on a monitor and saw her and heard her coughing about 3 o'clock in the morning. She thought the coughing sounds were strange, so she went to check on her. At that time, she found her mother on her right side with some white mucus type material coming from her mouth and her mother was unresponsive. She was breathing and she was not sure if she was possibly choking, so she called 911. She reports the patient had some tremor in her hands and feet, but no significant overall seizure-type shaking. She was unresponsive when the 911 service arrived. She was apparently having some dry heaving at that time, but was not vomiting anything other than what she described as the white mucus type material. She did think at one point that her mother's right mouth was drooping. They presented to the Emergency Department in [place], where she reports that the patient was awake, but had no ability to move her extremities since that time. However, she has been continually improving and is very close to her baseline now other than still having a little bit of difficulty finding words and speaking appropriately. The patient reports she does recall feeling "so sick." Other than that, the patient is not able to give significant history. The patient has recently had some changes made in her medications including reducing her dose of Ranexa for fear that it was causing some nausea type symptoms. Her daughter reports that it really did not make a difference and she cannot only find any pattern to her nausea other than she does tend to feel a bit nauseated if she does not get something to eat on a fairly routine basis. REVIEW OF SYSTEMS: The patient's daughter reports that she has been eating and drinking fairly well, although in the last few days, she did think that she had some decrease in urine output and has been encouraging her to drink more fluids. She denies any other review of symptoms, although it is very limited as the patient has the underlying dementia and cannot really give a full review of systems some. PAST MEDICAL HISTORY: The patient has a history of hypertension, likely vascular type dementia. She has coronary artery disease and had a five-vessel bypass about 20 years ago. She has subsequently had a repeat heart catheterization in June, which revealed complete occlusion of all 5 bypasses and she is currently on medical management. She has a cardiomyopathy with an ejection fraction of 20% to 25%. She has hypothyroidism, dyslipidemia, and history of TIAs. Also of note, the patient apparently recently was seen in the [place] Emergency Department with urinary tract infection, was on a 10-day course of antibiotics. PAST SURGICAL HISTORY: Coronary artery bypass graft, hysterectomy, tonsillectomy, and right lower extremity angioplasty. FAMILY HISTORY: Notable for coronary artery disease. SOCIAL HISTORY: The patient is a nonsmoker, nondrinker, and nondrug user. She is living with her daughter. Of note, her daughter just recently lost her here at this facility. She is a DNR and her daughter is her surrogate decision maker. ALLERGIES: CODEINE. CURRENT MEDICATIONS: 1. Ranexa 500 mg b.i.d. 2. PreserVision AREDS one p.o. b.i.d. 3. Levothyroxine 50 mcg daily. 4. Aspirin 325 daily. 5. Metoprolol 25 mg daily. 6. Crestor 20 mg daily. 7. Prozac 20 mg daily. 8. Cozaar 25 mg daily. 9. Linzess 290 mcg daily. PHYSICAL EXAMINATION: VITAL SIGNS: Blood pressure 157/78, pulse 63, respirations 15, temperature is 97.9, and O2 saturation 93% on room air. GENERAL APPEARANCE: Age-appropriate female, in no distress. She is awake and alert, very pleasant and cooperative. HEENT: PERRL. No OP lesions. Oral mucosa is moist. NECK: Supple and symmetric. No bruits noted. HEART: Regular without murmurs. LUNGS: Clear to auscultation bilaterally with good chest wall expansion. Some slight rales on the right base, but mild. ABDOMEN: Soft, nontender, and nondistended. Positive bowel sounds. No masses. No organomegaly. EXTREMITIES: Warm and dry with no cyanosis, clubbing, or edema. DIAGNOSTIC DATA: Workup done in the [place] [facility] Department indicates normal vital signs. Her urinalysis was negative. Troponin was less than 0.01. Glucose 117, BUN 12, and creatinine 0.76. Chemistries were normal with the exception of CO2 of 22 and protein of 5.3, but an albumin of 3.4. INR was 1.2, PTT 34.6. White count of 5.4, hemoglobin 11.8, and platelets 130. Chest x-ray showed cardiomegaly with bibasilar interstitial opacities, which could be an atypical pneumonia or interstitial edema. These are apparently increased from prior exams. There was a CT angiogram that showed severe stenosis of the proximal right ICA. No evidence of large vessel occlusion or significant intracranial stenosis. The patient received 2 L of fluid bolus, aspirin and IV doxycycline. So far labs here include an ammonia level, which is 20 and a repeat troponin of less than 0.01. EKG shows sinus rhythm with first-degree AV block at 64 beats per minute, some nonspecific intraventricular block and some T-wave abnormalities in lateral leads, which are very nonspecific as well. IMPRESSION AND PLAN: 1. Episode of unresponsiveness concerning for transient ischemic attack. The patient appears to be essentially recovered back to baseline, although it sounds like it was about 15 to 30 minutes duration, during which she was not responsive at all. She has some chronic dementia and etiologies also include possibility of new onset seizure, although less likely versus potential underlying infection. At this point, the only potential there looks like possibly a pneumonia. It is also possible that the patient could have had some aspiration. I had a long discussion with the patient's daughter. We will keep her on the telemetry monitoring giving her cardiomyopathy and we will repeat the MRIs that is fairly benign. We will continue to check troponins and follow up for any evidence of infection. 2. Coronary artery disease. This patient has a history of known coronary artery disease. She has a remote history of bypass with five-vessel grafts, all of which are 100% occluded and the patient is now on medical management alone. We will continue with her aspirin and beta-vance and Ranexa. 3. Cardiomyopathy with an ejection fraction of 20% to 25%. We will continue with the beta-vance. It actually appears that the patient is on Lasix at home as well. She received fluid resuscitation in the Emergency Department at [place]. We will need to be mindful of potential overload. 4. Possible congestive heart failure exacerbation. The patient has bibasilar opacities on her chest x-ray, which appeared to be increased. We will check a BNP and follow up her chest x-ray. She appears to not be in any significant respiratory distress. Her exam does reveal basilar rales and certainly with her cardiomyopathy, she is at potential risk. 5. Possible aspiration pneumonia. The patient was unresponsive and appeared to be coughing and choking. She has bibasilar infiltrates. She has no fever and no white count. We will repeat the chest x-ray in the morning and follow up on the BNP to determine if this is more volume related. However, low threshold for initiating antibiotics, although at this point it does not appear to be indicated. We will get speech to evaluate the patient as well. 6. Right carotid stenosis. This was found on the CT scan in [place]. It has also been evaluated here extensively. She has had prior CTs and Dopplers of the carotids. She was seen by Dr. Winters for this and Dr. Bedoya, who is covering at one point. They feel that the CT is likely overestimating the degree of stenosis and the ultrasound is likely more reliable in this situation. At any rate, it was felt that there was no indication for any intervention. Prior MRIs actually revealed that if there was any damage at all, it was more on the left side rather than the right. 7. Hypothyroidism. We will check a thyroid level. 8. Hyperlipidemia. Continue with the Crestor. 9. Disposition. The patient's daughter indicated she thought her mother was even a little upset with her for bringing her to the hospital. They are very clear that she is a do not resuscitate and understand that she has coronary artery disease and is not amenable to any procedural intervention and is on maximum medical therapy. MRI showed new CVA. Likely small vessel in nature. Echo, consult neuro, stroke team. Discussed with patient's daughter. Job ID: [id number] MTDD
[2018-09-17] MEDS: Aspirin 325 mg Enteric Coated Tablet PO SCH (13:17)
[2018-09-17] MEDS ORDERED: Furosemide 20 MG TAB PO SCH (13:30)
[2018-09-17] MEDS ORDERED: Furosemide 20 MG/2 ML VIAL SLOW IVP SCH (13:30)
[2018-09-17] MEDS ORDERED: FLUoxetine HCl 20 MG CAP PO SCH (13:30)
[2018-09-17] MEDS: FLUoxetine HCl 20 MG CAP PO SCH (13:41)
[2018-09-17] MEDS: Furosemide 20 MG TAB PO SCH (13:42)
[2018-09-17] MEDS ORDERED: Clopidogrel Bisulfate 75 MG TAB PO SCH (16:45)
[2018-09-17] MEDS: Promethazine HCl 25 MG/ML VIAL IM/IV PRN (20:06)
[2018-09-17] MEDS: Losartan 25 MG TAB PO SCH (20:54)
[2018-09-17] MEDS: Senokot S 8.6-50 MG TAB PO SCH (21:00)
[2018-09-18] MEDS: Levothyroxine Sodium 50 MCG TAB PO SCH (05:26)
[2018-09-18 06:08] LABS: #Eosinphils 0.1 thou/uL (0.0-0.7); #Lymphocytes 1.2 thou/uL (1.20-3.40); #Monocytes 0.7 thou/uL (0.11-0.59); #Neutrophils 4.2 thou/uL (1.40-6.50); %Basophils 0.5 % (0.0-1.0); %Eosinophils 1.4 % (0.0-10.0); %Lymphocytes 19.2 % (21.0-51.0); %Monocytes 11.2 % (0.0-10.0); %Neutrophils 67.7 % (42.0-75.0); Mean Corpuscular HGB CONC 33.3 g/dL (32.0-36.0); Mean Corpuscular Hemoglobin 30.8 pg (27.0-31.0); Mean Corpuscular Volume 92.3 fL (78.0-98.0); Mean Platelet Volume 6.9 fL (7.4-10.4); Platelet Count 152 thou/uL (130-400); RBC Distribution Width 17.4 % (11.5-14.5); White Blood Cell (WBC) Count 6.2 thou/uL (4.8-10.8)
[2018-09-18 06:32] LABS: Anion Gap 12 mmol/L (10-20); BUN (Urea Nitrogen) 9 mg/dL (9.8-20.1); Calc. Creatinine Clearance 46 mL/min (70-130); Calcium 9.2 mg/dL (7.8-10.44); Carbon Dioxide 26 mmol/L (23-31); Cardiac Risk 2.9 (Less than 4.5); Chloride 105 mmol/L (98-107); Cholesterol 174 mg/dl (< 200 Desired); Estimated GFR-MDRD 76; Glucose 83 mg/dL (83-110); HDL Cholesterol 60 mg/dL (>60 Neg Risk); LDL Cholesterol, Calculated 81 mg/dL; Potassium 3.7 mmol/L (3.5-5.1); Sodium 139 mmol/L (136-145); Triglycerides 167 mg/dL (Less than 150)
--- NOTE | 2018-09-18 07:25 | RAD ---
CHEST 1 VIEW: Date: 09/18/18 INDICATION: History of possible aspiration. COMPARISON: Prior exam dated 12/29/17. FINDINGS: There is moderate cardiomegaly. Lungs are clear. Post CABG change is stable. Chronic osseous changes are stable. IMPRESSION: No acute abnormality. POS: BH
[2018-09-18] MEDS: Clopidogrel Bisulfate 75 MG TAB PO SCH (08:20)
[2018-09-18] MEDS: Furosemide 20 MG TAB PO SCH (08:20)
[2018-09-18] MEDS: Senokot S 8.6-50 MG TAB PO SCH ×2 (08:20→20:25)
[2018-09-18] MEDS: Potassium Chloride 10 MEQ TAB PO SCH (08:20)
[2018-09-18] MEDS: Aspirin 325 mg Enteric Coated Tablet PO SCH (08:20)
[2018-09-18] MEDS: FLUoxetine HCl 20 MG CAP PO SCH (08:20)
[2018-09-18] MEDS ORDERED: Non-Formulary Item 1 EACH (Linaclotide [Linzess] 290 MCG) PO SCH (09:00)
--- NOTE | 2018-09-18 12:00 | PDOC.PN ---
- Subjective Encounter Start Date: 09/18/18 Encounter Start Time: 11:58 Subjective: Admitted with acute mental status changes and found to have acute CVA -: Complaining of nausea/vomiting. Has history of episodic nausea/vomiting. - Objective Resuscitation Status - Order Detail: 09/17/18 08:14 Resuscitation Status Routine Resuscitation Status: DNAR: NO Resuscitation Discussed with: Patient's daughter Vital Signs & Weight: Vital Signs (12 hours) Temp Pulse Resp BP Pulse Ox 09/18/18 11:46 98.3 F 61 16 157/90 H 93 L 09/18/18 08:00 98.9 F 60 16 148/79 H 94 L 09/18/18 04:00 97.8 F 59 L 12 146/79 H 93 L Weight Admit Weight 111 lb 9.6 oz Weight 111 lb 9.6 oz I&O: 09/17/18 09/18/18 09/19/18 06:59 06:59 06:59 Intake Total 875 Balance 875 Result Diagrams: 09/18/18 05:39 09/18/18 05:39 Phys Exam - Physical Examination Constitutional: NAD ill looking and fatigued HEENT: PERRLA, moist MMs Neck: no JVD, supple Respiratory: no wheezing, no rhonchi fair air entry bilaterally Cardiovascular: RRR Gastrointestinal: soft, non-tender, no distention, positive bowel sounds Musculoskeletal: no edema, pulses present Neurological: moves all 4 limbs awake and cooperative. obeying commands Dx/Plan (1) Chronic systolic (congestive) heart failure Code(s): I50.22 - CHRONIC SYSTOLIC (CONGESTIVE) HEART FAILURE Status: Acute (2) Carotid atherosclerosis Code(s): I65.29 - OCCLUSION AND STENOSIS OF UNSPECIFIED CAROTID ARTERY Status : Acute (3) Acute CVA (cerebrovascular accident) Code(s): I63.9 - CEREBRAL INFARCTION, UNSPECIFIED Status: Acute (4) CAD (coronary artery disease) Code(s): I25.10 - ATHSCL HEART DISEASE OF [place] CORONARY ARTERY W/O ANG PCTRS Status: Acute (5) Encephalopathy Code(s): G93.40 - ENCEPHALOPATHY, UNSPECIFIED Status: Acute (6) Expressive aphasia Code(s): R47.01 - APHASIA Status: Acute (7) Hypertension Code(s): I10 - ESSENTIAL (PRIMARY) HYPERTENSION Status: Acute (8) Nausea & vomiting Code(s): R11.2 - NAUSEA WITH VOMITING, UNSPECIFIED Status: Acute Qualifiers: Vomiting type: unspecified Vomiting Intractability: unspecified Qualified Code(s): R11.2 - Nausea with vomiting, unspecified Comment: Likely due to iatrogenic component with Ranexa and Linzess, hold home meds, Zofran IV, encourage increased free-H2O (9) Hypothyroidism Code(s): E03.9 - HYPOTHYROIDISM, UNSPECIFIED Status: Chronic Qualifiers: Hypothyroidism type: acquired Qualified Code(s): E03.9 - Hypothyroidism, unspecified Comment: Continue Levothyroxine 50mcg daily - Plan Awaiting Echo. -: Continue supportive care. -: for discharge tomorrwo with Home health. -: Antiemetic as needed. -: liberal oral intake advised. * .
[2018-09-18] MEDS: Promethazine HCl 25 MG/ML VIAL IM/IV PRN (12:20)
[2018-09-18] MEDS: Losartan 25 MG TAB PO SCH (20:24)
--- NOTE | 2018-09-19 00:57 | CON ---
DATE OF CONSULTATION: 09/18/2018 CONSULT PHYSICIAN: Hospitalist Service. HISTORY OF PRESENT ILLNESS: Ms. Matamoros was at home when her daughter heard her starting to cough violently. When she went in to check on her, she choked and subsequently threw up. She seemed very weak in general. There was some questionable left facial droop. She decided to call for help. She was brought into the hospital for evaluation. Her MRI of the brain showed extensive small-vessel disease as well as a new acute left periventricular lacunar stroke. Her echocardiogram now shows a 15% to 20% ejection fraction. Her carotid ultrasound was clear. She had seen Dr. Prieto just a few days ago. She does not report any lateralized weakness or numbness. She does not complain of any difficulty with speech or swallowing. She has had some continued vomiting episodes, which apparently have been going on for several weeks in an unexplained fashion. I think that the acute findings on MRI are likely incidental and asymptomatic. It sounds that she was in possibly congestive failure and questionably some mucous plugging, otherwise her workup is unremarkable. I would go ahead and add Plavix for the time being. She might need to be on anticoagulation given her poor ejection fraction, but I would leave that up to Dr. Prieto. Job ID: [id number]
[2018-09-19] MEDS: Levothyroxine Sodium 50 MCG TAB PO SCH (05:48)
--- NOTE | 2018-09-19 08:13 | DIS ---
DATE OF ADMISSION: 09/17/2018 DATE OF DISCHARGE: 09/19/2018 PRIMARY CARE PROVIDER: Dr. Canelo Pastor. DISPOSITION: Discharged home. FINAL DIAGNOSES: 1. Possible acute cerebrovascular accident. 2. Coronary artery disease. 3. Ischemic cardiomyopathy. 4. Encephalopathy, resolved. 5. Hypertension. 6. Hypothyroidism. 7. Dyslipidemia. DISCHARGE MEDICATIONS: 1. Lasix 20 mg a day. 2. Prozac 20 mg a day. 3. Aspirin 325 mg a day. 4. Cozaar 50 mg a day. 5. Linzess 290 mcg a day. 6. Levothyroxine 50 mcg a day. 7. Ranexa 1000 mg twice a day. 8. Potassium chloride 10 mEq at bedtime. 9. Toprol 25 mg at bedtime. 10. Crestor 20 mg a day. 11. Plavix 75 mg a day. This is a new prescription. ALLERGIES: TO CODEINE. DIET: Heart healthy. PENDING AT TIME OF DISCHARGE: Nothing. CODE STATUS: DNAR. HOSPITAL COURSE: The patient was referred to [facility]ist [facility] after presenting with an episode of unresponsiveness. This has resolved. Her brain MRI demonstrated very small area of acute lacunar infarction. She was seen in consultation by Dr. Nate Lopez who added Plavix to her regimen. LABORATORY DATA: Laboratory workup, comp metabolic profile is unremarkable. Lipid profile: Cholesterol 174, LDL 81, and HDL 60. Her BNP was 1451. However, chest x-ray showed no active CHF, effusion, etc. CBC was unremarkable. PHYSICAL EXAMINATION: GENERAL: She is alert and cooperative. CARDIORESPIRATORY: Clear. VITAL SIGNS: Stable. She is desirous of being discharge. FOLLOWUP VISITS: She is being discharged home to follow up with Dr. Pastor in 7 days. Prescription for Plavix the new medicine has been written. Job ID: [id number]
[2018-09-19] MEDS: FLUoxetine HCl 20 MG CAP PO SCH (09:00)
[2018-09-19] MEDS: Clopidogrel Bisulfate 75 MG TAB PO SCH (09:00)
[2018-09-19] MEDS ORDERED: FLUoxetine HCl 10 MG CAP PO SCH ×2 (09:00)
[2018-09-19] MEDS: Potassium Chloride 10 MEQ TAB PO SCH (09:00)
[2018-09-19] MEDS ORDERED: Furosemide 20 MG TAB PO SCH (09:00)
[2018-09-19] MEDS ORDERED: Levothyroxine Sodium 50 MCG TAB PO SCH (09:00)
[2018-09-19] MEDS: Senokot S 8.6-50 MG TAB PO SCH (09:00)
[2018-09-19 09:15] VITALS: BP 108/56; TEMP 98.1
--- NOTE | 2018-09-19 15:22 | PQF ---
CLINICAL DOCUMENTATION IMPROVEMENT CLARIFICATION FORM: ICD-10 Updated PLEASE DO AN ADDENDUM TO THE PROGRESS NOTE WITH ANY DOCUMENTATION UPDATES OR ADDITIONS AND CARRY THROUGH TO DC SUMMARY. THANK YOU. DATE: 09/19/18 ATTN: DR. PASTOR Please exercise your independent, professional judgment in responding to the clarification form. Clinical indicators are provided on the bottom of this form for your review Please check appropriate box(s): [x ] Encephalopathy: Type: [x ] Acute [ ] Subacute [ ] Chronic Etiology: [ ] Hypertensive [ ] Metabolic [ ] Toxic [ ] Hepatic with Coma [ ] Hepatic w/o Coma [ ] Hypoxic [ ] Septic [ ] Drug induced: [ ] Unspecified [ ] in the setting of underlying dementia [ ] Other (please specify) [ ] Transient Alteration of Awareness [ x] Other diagnosis cva____ [ ] Unable to determine In addition, please specify: Present on Admission (POA): [ x ] Yes [ ] No [ ] Unable to determine For continuity of documentation, please document condition throughout progress notes and discharge summary. Thank You. CLINICAL INDICATORS - SIGNS / SYMPTOMS / LABS DC SUMMARY: "ENCEPHALOPATHY" RISKS: H/O DEMENTIA ADVANCED AGE HTN TREATMENT: NEUROLOGY CONSULT BRAIN MRI MONITORING ON STROKE UNIT (This form is maintained as a part of the permanent medical record) 2014 [employer]. All Rights Reserved [email or web address] Office: [phone] [facility]
[2018-09-19] MEDS ORDERED: Non-Formulary Item 1 EACH (Potassium Chloride [Potassium Chloride] 10 MEQ) PO SCH (21:00)
[2018-09-19] MEDS ORDERED: Aspirin 325 mg Enteric Coated Tablet PO SCH (21:00)
[2018-09-19] MEDS ORDERED: Rosuvastatin 20 MG TAB PO SCH (21:00)
[2018-09-19] MEDS ORDERED: Potassium Chloride 10 MEQ TAB PO SCH (21:00)
== END 2018-09-19 11:19 | disposition home or self-care (01) | DRG 65 ==
LOC: ERS 06:28 → 2SE 09:04 → OBSVTOIN 13:44
PROVIDERS: ADMIT Internal Medicine; ATTEND Internal Medicine
DX: I63.81 Other cerebral infarction due to occlusion or stenosis of small artery (principal); G93.40 Encephalopathy, unspecified; I50.22 Chronic systolic (congestive) heart failure; Z66 Do not resuscitate; I25.10 Atherosclerotic heart disease of native coronary artery without angina pectoris; F41.9 Anxiety disorder, unspecified; F32.9 Major depressive disorder, single episode, unspecified; I11.0 Hypertensive heart disease with heart failure; I25.5 Ischemic cardiomyopathy; E03.9 Hypothyroidism, unspecified; E78.5 Hyperlipidemia, unspecified; F01.50 Vascular dementia, unspecified severity, without behavioral disturbance, psychotic disturbance, mood disturbance, and anxiety; Z88.5 Allergy status to narcotic agent; Z90.710 Acquired absence of both cervix and uterus; Z95.1 Presence of aortocoronary bypass graft; Z79.82 Long term (current) use of aspirin; Z79.899 Other long term (current) drug therapy
CPT/HCPCS: 36415; 70551; 71045; 80048; 80061; 82140; 83880; 84146; 84443; 84484; 85025; 93005; 93306; J1940; J2550; Q0162